=== PATIENT | female | born 1940 | race Caucasian/White ===

== ENCOUNTER 2017-12-05 05:53 | Inpatient (IN) | payer OTHER ==
--- NOTE | 2017-11-29 09:47 | RAD REPORT ---
EXAM DESCRIPTION: RADOP - Outpt Chest Pa/Lat (2 Views) - 11/29/2017 9:10 am CLINICAL HISTORY: Preop COMPARISON: 2014 FINDINGS: The lungs appear clear of acute infiltrate. The heart is borderline enlarged. IMPRESSION: No acute abnormality is displayed
[2017-11-29 10:22] LABS: Absolute Lymphocytes (CBC) 1.9 K/uL (0.7-4.9); Absolute Monocytes 0.3 K/uL (0.1-1.3); Basophils % 0.9 % (0-1.3); Eosinophils % 4.6 % (0-4.4); Lymphocytes % 34.7 % (15.3-44.8); MCV 87.4 fL (80-100); MPV 7.2 fL (7.6-11.3); RBC Red Blood Cell Count 4.69 M/uL (3.86-4.86)
[2017-11-29 10:23] LABS: Urine Appearance CLEAR; Urine Bilirubin NEGATIVE (NEG); Urine Blood NEGATIVE (NEG); Urine Color YELLOW; Urine Glucose NEGATIVE (NEG); Urine Protein NEGATIVE (NEG); Urine Urobilinogen 0.2 mg/dL (0.2-1.0); Urine pH 6.5 (5.0-7.0)
[2017-11-29 10:24] LABS: Urine Microscopic Reflex NO UMIC
[2017-11-29 10:30] LABS: Protime INR 1.03
[2017-11-29 10:45] LABS: Albumin 4.6 g/dL (3.2-5.5); Bilirubin Direct 0.1 mg/dL (0-0.2); Bilirubin Total 1.1 mg/dL (0.3-1.2); Protein, Total 7.7 g/dL (6.0-8.3)
[2017-11-29 10:48] LABS: Albumin 4.5 g/dL (3.2-5.5); Potassium 3.9 mEq/L (3.6-5.0); Protein, Total 7.6 g/dL (6.0-8.3)
[2017-11-29 11:04] LABS: A1c Component 0.61 mg/dL; Hemoglobin A1c 6.2 % (4-6.0)
--- OUTSIDE RECORDS SUMMARY | 2017-12-05 05:55 | XMS REPORT | Clinical Summary ---
:1940 Author Organization [facility] Address [address] [place] [address] Care Team Providers Name Role Phone Bryn Whitaker MD Primary Care Provider Allergies Active Allergy Reactions Severity Noted Date Comments Hydrocodone 12/13/2016 Current Medications Prescription Sig. Disp. Refills Start Date End Date Status amLODIPine (NORVASC) TK 1 T PO 0 11/29/2016 Active 5 mg tablet QD levothyroxine TK 1 T PO 0 09/06/2016 Active (SYNTHROID, LEVOXYL) QD 125 mcg tablet atorvastatin 11/28/2016 Active (LIPITOR) 20 MG tablet irbesartan-hydrochlor TK 1 T PO 1 10/31/2016 Active othiazide (AVALIDE) QD 300-12.5 mg per tablet metFORMIN XR TK 2 TS PO 0 09/06/2016 Active (GLUCOPHAGE-XR) 500 QD mg 24 hr tablet LUMIGAN 0.01 % 12/11/2016 Active ophthalmic drops clopidogrel (PLAVIX) TK 1 T PO 90 tablet 3 11/06/2017 Active 75 mg tablet QAM clopidogrel (PLAVIX) TK 1 T PO 3 11/07/2016 11/06/2017 Discontinued 75 mg tablet QAM Active Problems Problem Noted Date Carotid disease, bilateral 12/13/2016 Encounters Date Type Specialty Care Team Description 11/27/2017 Telephone Cardiology Buster Hunter MA Results (nuclear stress test) 11/06/2017 Refill Cardiology Liseth Aguiar Med Refill (Plavix) JOSE CARLOS 10/25/2017 Telephone Cardiology Buster Hunter MA cardiac clearance 10/25/2017 Orders Only Cardiology Buster Hunter MA Carotid disease, bilateral (Primary Dx) 12/13/2016 Office Visit Cardiology Porfirio Jain MD Carotid disease, bilateral (Primary Dx) after 12/04/2016 Family History Medical History Relation Name Comments Stroke Father Relation Name Status Comments Father Social History Tobacco Use Types Packs/Day Years Used Date Never Smoker Alcohol Use Drinks/Week oz/Week Comments No Sex Assigned at Date Recorded Not on file Last Filed Vital Signs Vital Sign Reading Time Taken Blood Pressure 160/72 12/13/2016 11:13 AM CDT Pulse 77 12/13/2016 11:13 AM CDT Temperature - - Respiratory Rate - - Oxygen Saturation - - Inhaled Oxygen Concentration - - Weight 81.7 kg (180 lb 3.2 oz) 12/13/2016 11:13 AM CDT Height 162.6 cm (5' 4") 12/13/2016 11:13 AM CDT Body Mass Index 30.93 12/13/2016 11:13 AM CDT Plan of Treatment Health Maintenance Due Date Last Done Comments ZOSTER VACCINE 2001 PNEUMOCOCCAL POLYSACCHARIDE VACCINE AGE 65 AND OVER 2006 PNEUMOCOCCAL-13 2006 INFLUENZA VACCINE 04/11/2017 Procedures Procedure Name Priority Date/Time Associated Comments Diagnosis ECHOCARDIOGRAM 2D Routine 11/24/2017 11:33 Carotid disease, Results for this COMPLETE W MMODE AM CDT bilateral procedure are in SPECTRAL COLOR DOPPLER the results ([id number]) section. after 12/04/2016 Results Echocardiogram complete w contrast and 3D if needed (11/24/2017 11:33 AM) Specimen Performing Laboratory [facility] [id number] [place] [address] Narrative [facility] Echocardiography Report Pat.Name:REMEDIOS ROTHMAN Pat.ID:[id number] .Date: 11/24/2017 Refer.MD:PORFIRIO JAIN MD Exam Time: 10:56:00 AM Study Type:Routine Echo Height:64inWeight:180lb BSA: 1.87 m2 DOBAge:1940,77Y Sex: FEMALEBP:150/72 Sonogrphr: Ros Adorno. Stat.:Outpatient Room:[address] Status:Final Echo Event ID:[id number] Order ID:[id number] Reason for Study:Carotid Disease History / Clinical:Hyperlipidemia, Hypertension Procedures:2D Echo, Colorflow Doppler Race:C FINDINGS: LV: LV size is normal. LV EF is normal. Overall wall motion is normal.Estimated EF is 65-69% RV: RV size is normal. RV systolic function is normal. LA: LA size is normal. RA: RA size is normal. AO: Aortic root diameter is normal. JOSÉ: No pericardial effusion. AV: No structural AV abnormalities noted. MV: No structural MV abnormalities noted. PV: No structural PV abnormalities noted. A trace of pulmonic regurgitation. TV: No structural TV abnormalities noted. A trace of tricuspid regurgitation Gregory: LV relaxation is impaired. LV filling pressure is elevated. Other:Estimated PA systolic pressure is 30-35 mmHg, assuming a meanRAP of 5 mmHg. MEASUREMENTS: 2D Parasternal Long [place] LVOT 1.7 cmLA Ds3.6 cm LVIDd4.4 cmIndex 2.4 cm/m Ao Rtd 3.5 cm Index1.9 cm/m LVIDs2.8 cmLV Jkpt413.2 g(87-129) LV%fs 36.4 % LVM Index 84.6 g/m2 IVSd 1 cmRWT0.5 LVPWd1.1 cm LA Biplane LA 4Ch Area 19.1 cm2 LA Vol 51.6 ml Index27.6 ml/m LA 2Ch Area 18.3 cm2 Signed 11/26/2017 12:54 AM Consuelo Armas M.D. Procedure Note Interface, Radiology Results In - 11/26/2017 12:54 AM CDT [facility] Echocardiography Report Pat.Name: REMEDIOS ROTHMAN.ID: [id number] .Date: 11/24/2017 Refer.MD: PORFIRIO JAIN MD Exam Time: 10:56:00 AM Study Type:Routine Echo Height: 64in Weight: 180lb BSA: 1.87 m2 Age: 10 1940,77Y Sex: FEMALE BP: 150/72 Sonogrphr: Amadou Lux RDCS Pat. Stat.:Outpatient Room: [place] [address] Study Status:Final Echo Event ID:[id number] Order ID: [id number] Reason for Study:Carotid Disease History / Clinical:Hyperlipidemia, Hypertension Procedures:2D Echo, Colorflow Doppler Race: C FINDINGS: LV: LV size is normal. LV EF is normal. Overall wall motion is normal. Estimated EF is 65-69% RV: RV size is normal. RV systolic function is normal. LA: LA size is normal. RA: RA size is normal. AO: Aortic root diameter is normal. JOSÉ: No pericardial effusion. AV: No structural AV abnormalities noted. MV: No structural MV abnormalities noted. PV: No structural PV abnormalities noted. A trace of pulmonic regurgitation. TV: No structural TV abnormalities noted. A trace of tricuspid regurgitation Gregory: LV relaxation is impaired. LV filling pressure is elevated. Other: Estimated PA systolic pressure is 30-35 mmHg, assuming a mean RAP of 5 mmHg. MEASUREMENTS: 2D Parasternal Long [place] LVOT 1.7 cm LA Ds 3.6 cm LVIDd 4.4 cm Index 2.4 cm/m Ao Rtd 3.5 cm Index 1.9 cm/m LVIDs 2.8 cm LV Mass 158.2 g (87-129) LV%fs 36.4 % LVM Index 84.6 g/m2 IVSd 1 cm RWT 0.5 LVPWd 1.1 cm LA Biplane LA 4Ch Area 19.1 cm2 LA Vol 51.6 ml Index 27.6 ml/m LA 2Ch Area 18.3 cm2 Signed 11/26/2017 12:54 AM Consuelo Armas M.D. after 12/04/2016 Insurance Payer Benefit Plan / Group Subscriber ID Type Phone Address A[employer]NA MEDICARE AETNA MEDICARE HMO/PPO [facility] xxxxxxxx HMO [phone] [place] [phone]
[2017-12-05] MEDS ORDERED: NA CHLORIDE 0.9% 1,000 ML ONE ×2 (06:17→09:19)
[2017-12-05] MEDS ORDERED: CEFAZOLIN/SWI 1gm 1 GM/10 ML SYR ONE (06:17)
[2017-12-05] MEDS ORDERED: LIDOCAINE 2% MPF 5 ML VIAL ONE ×2 (07:08→09:00)
[2017-12-05] MEDS ORDERED: ROCURONIUM 50 MG/5 ML VIAL IV ONE ×2 (07:08→09:00)
[2017-12-05] MEDS ORDERED: FENTANYL CITR 100 MCG/2 ML ONE ×2 (07:08→09:00)
[2017-12-05] MEDS ORDERED: MIDAZOLAM HCL 2 MG/2 ML INJ ONE ×2 (07:08→09:00)
[2017-12-05] MEDS ORDERED: PROPOFOL 200 MG/20 ML VIAL IV ONE ×2 (07:08→09:00)
[2017-12-05] MEDS ORDERED: TRANEXAMIC ACID 1,000 MG in NA CHLORIDE 0.9% 50 ML IV SCH (07:15)
[2017-12-05] MEDS ORDERED: DEXAMETHASONE 4 MG/ML VIAL ONE (07:15)
[2017-12-05] MEDS ORDERED: ROPLVACAINE HCL 40 ML ONE (07:15)
[2017-12-05] MEDS ORDERED: NA CHLORIDE 0.9% 250 ML ONE (07:21)
[2017-12-05] MEDS ORDERED: EPHEDRINE SULF 50 MG/5 ML SYR ONE (09:00)
[2017-12-05] MEDS: BUPIVACA 0.25%/EPI 0.0005%/PF 30 ML VIAL ONE ×3 (09:06→11:20)
[2017-12-05] MEDS ORDERED: CEFAZOLIN SODIUM 1 GM/VIAL ONE (09:58)
[2017-12-05] MEDS ORDERED: ONDANSETRON 4 MG/2 ML VIAL ONE (09:59)
[2017-12-05] MEDS ORDERED: NS 0.9% VIAL 10 ML ONE (09:59)
[2017-12-05] MEDS ORDERED: KETOROLAC 30 MG/ML INJ ONE (11:15)
[2017-12-05 12:06] LABS: Hematocrit 35.5 % (36.0-45.0)
--- NOTE | 2017-12-05 12:14 | P.BOP ---
Preoperative diagnosis: PRIMARY OSTEOARTHRITIS RIGHT KNEE Postoperative diagnosis: SAME Primary procedure: RIGHT KNEE TOTAL KNEE ARTHROPLASTY, IMAGELESS Jute Bag Sewer: RENATO LLANOS Estimated blood loss: 75 mL Findings: EBURNATED BONE MED. COMPT. Anesthesia: General Complications: None Implants: SIGMA PS4NR;TIB MBT TRAY RP3;INSERT [id number] Fluids & blood products: SMARTSET GMV GENT CEMENT 2 BATCHES; 0.25%MARCAINE 30 mL w/EPI Transferred to: Recovery Room Condition: Good
--- NOTE | 2017-12-05 12:45 | RAD REPORT ---
EXAM DESCRIPTION: RAD - Knee Right 2 View - 12/05/2017 12:00 pm CLINICAL HISTORY: Right knee surgery FINDINGS: Postsurgical changes of a right knee arthroplasty are seen. The prosthesis is in good posi tion. No fracture or dislocation is noted. There is no loosening of hardware
[2017-12-05] MEDS: Ringers Lactate 1,000 ML IV SCH (12:54)
[2017-12-05] MEDS ORDERED: D50W 25 GM/50 ML SYRINGE IV PRN (17:03)
[2017-12-05] MEDS ORDERED: GLUCAGON 1 MG/VIAL IM PRN (17:03)
[2017-12-05] MEDS: AMLODIPINE 10 MG TAB PO SCH (17:22)
[2017-12-05] MEDS: CEFAZOLIN/SWI 1gm 1 GM/10 ML SYR IV SCH (17:23)
[2017-12-05] MEDS ORDERED: BIMATOPROST EACH EYE SCH (17:30)
[2017-12-05 18:24] VITALS: BMI 32.1
[2017-12-05] MEDS: ATORVASTATIN 20 MG TAB PO SCH (20:11)
[2017-12-05] MEDS ORDERED: EPA PO SCH (21:00)
[2017-12-05] MEDS ORDERED: FISH OIL PO SCH (21:00)
[2017-12-05] MEDS ORDERED: DHA PO SCH (21:00)
[2017-12-05] MEDS ORDERED: OMEGA PO SCH (21:00)
[2017-12-05] MEDS ORDERED: HOME MED 1 EA UNK (Folic Acid [Folic Acid] 0.4 MG) PO SCH (21:00)
[2017-12-05] MEDS: INSULIN -REGULAR HUMAN 50 UNIT/0.5 ML ML SQ SCH (21:33)
--- NOTE | 2017-12-05 21:45 | CON ---
Date of Consultation: 12/05/2017 Reason For Consultation: Medical management for high blood pressure and diabetes. History Of Present Illness: The patient is a 77-year-old female with past medical history of hypertension; hyperlipidemia; carotid artery disease, status post stent; diabetes; who was admitted to the hospital for right total knee replacement. The patient has been undergoing treatment for her epdw-bu-[id number] arthritis for the past year and was scheduled for total right knee replacement. The patient was operated on today by Dr. Aleman and tolerated the procedure well. The patient does not take insulin for her diabetes. She is very well controlled with a hemoglobin A1c of 6.2%. Postoperatively, her blood pressure has been normotensive to hypotensive side, and the patient has been asymptomatic. The patient's blood sugar has been stable with last check 189. When the patient was seen, she was awake, alert, oriented x3, not in any acute distress. Past Medical History: Hypertension, hyperlipidemia, diabetes mellitus type 2, carotid artery disease. Past Surgical History: Right carotid stent placement, left total knee replacement, right foot bunion surgery, left hand surgery, and recent right total knee replacement. Allergies: GABAPENTIN AND HYDROCODONE. Medications: Reviewed. Social History: Denies any alcohol use, tobacco use, or illicit drug use. The patient is , has good social support. Family History: Sister had breast cancer and end-stage renal disease. Both aunts on maternal and paternal side have diabetes. Mother has hypertension. Review of Systems: An 11-point system reviewed, negative except as above. Physical Examination: Vital Signs: Temperature 97.2, heart rate 73, blood pressure 116/52, respirations 16, O2 95% on room air. General: Awake, alert, oriented x3. No acute distress. Elderly female, obese , BMI 32.1. HEENT: Normocephalic, atraumatic. PERRLA. EOMI. Moist mucous membranes. Oropharynx is clear. Conjunctiva anicteric. Neck: Supple. No JVD. Trachea midline. CV: S1, S2. No murmurs. Regular rate and rhythm. Peripheral pulses present bilaterally. Respiratory: Clear to auscultation bilaterally. No wheezing. No stridor. No use of accessory muscles. Gastrointestinal: Abdomen is soft, nontender, nondistended. Positive bowel sounds. Extremities: No clubbing, cyanosis, or edema. No calf tenderness. Musculoskeletal: Right knee is bandaged. Limited range of motion due to bandage. Neurologic: Nonfocal. Cranial nerves 2 through 12 intact grossly. No focal neurological deficit. Speech is normal. Skin: No rashes. Normal skin turgor. Laboratory Data: Hemoglobin 11.9, hematocrit 35.5. Blood glucose 189. Hemoglobin A1c 6.2% from 11/29/2017. Diagnostic Data: Knee x-ray shows postsurgical changes in right knee arthroplasty are seen. The prosthesis is in good position. No fracture or dislocation is noted. There is no loosening of hardware. Assessment And Plan: A 77-year-old female with; 1. Right total knee replacement, postoperative day number zero [address] Aleman. Pain control. 2. Diabetes mellitus type 2 with hyperglycemia, non-insulin dependent. We will start the patient on sliding scale insulin. Hemoglobin A1c is 6.2%. The patient's diabetes is well controlled. We will continue to monitor blood glucose levels. 3. Essential hypertension, stable. Resume home medications as appropriate. 4. Hyperlipidemia. Continue statin. 5. Obesity. Body mass index of 32.1. 6. Hypothyroidism 7. Glaucoma Thank you for the consultation. We will follow along with you. ALEXANDER Voice ID: [id number] Report ID: [id number] JOSE C
[2017-12-06] MEDS: CEFAZOLIN/SWI 1gm 1 GM/10 ML SYR IV SCH (00:15)
--- NOTE | 2017-12-06 00:15 | OP ---
Date of Procedure: 12/05/2017 Surgeon: Jose Aleman MD Financial Services Representative: MEL Chacon. Preoperative Diagnosis: Primary osteoarthritis, right knee. Postoperative Diagnosis: Primary osteoarthritis, right knee. Primary Procedure: Right knee total knee arthroplasty, imageless. Indications: This 77-year-old female had a left total knee done in 2008. She has been using that as her strong knee and putting up with increasingly limiting and painful symptoms for her right knee. She has no longer a good response to viscosupplementation or hydrocortisone injections. The patient is finding daily activities limited and painful. She has elected to proceed with total knee arthropl asty for her right knee after discussion of risks and benefits with all questions answered. Technique: The patient was taken to the operating room and given a general anesthetic. She had been given a femoral nerve and sciatic nerve block in the PACU. The right lower extremity was prepped an d draped with a tourniquet at the proximal thigh and a bolster under the right hip. Rest was positio bbi on the foot of the bed to place the knee in a 90-degree flexed position. After prepping and drap ing, a pen was used to daniel the incision. Then, an Ioban sticky drape was applied. The incision was made across the patella in the midline going from 6 cm above the superior pole of the patella to jus t medial and distal to the tibial tubercle. This was carried sharply through the skin and subcutaneo us tissue and then blunt and sharp dissection was used to expose the medial parapatellar line. The m edial parapatellar incision through the joint capsule was carried out sharply. The patella was quinn ed and measured at 22 mm. The 3 PEG oval dome 38 mm patellar prosthetic component was chosen. The c utting jig was set for removal of 9 mm. The oscillating saw was used to make the cut removing the ar ticular surface of the patella. PEG holes were drilled and the prosthetic trial patella was placed i n position and measured at 22 mm of thickness again. The patellar dome trial was removed and a metal rosangela was putting in its place and then sharp debridement was carried out for the knee, removing the majority of the anterior fat pad and ligamentum mucosum. Also the portions of the medial and lateral menisci that could be reached were removed sharply along with the floor of the suprapatellar pouch a gainst the distal anterior supracondylar femur. The sharp debridement was completed and a rongeur wa s used to remove bone spurs on the proximal tibial rim and the distal femoral articular margin. The 3-mm pins were placed in parallel fashion inside the incision in the distal femur, angled medially. Once the pins were in place, the femoral array was attached. Two pins were placed through punctures in the mid tibial area on the medial side of the lower leg. Once the arrays were in place, the limb was moved in circumduction while the computer picked up the center of rotation of the femoral head fo r measuring the mechanical weightbearing line. The registration was then carried out for the femur a nd the tibia in sequence as indicated by the computer navigation program. A size 3 tibial tray was s elected along with a 4 in femoral component. The cutting jig for the tibia was navigated into positi on. The cut was made and verified. Then, the tensionometers were put in. The medial collateral lig ament was tight and release was required in the proximal portion of the MCL distally adjacent to the medial tibia. This was done with a periosteal elevator and once the partial release was accomplished , then the tensionomentor was replaced and the numbers were acceptable. The cutting jig for the dist al femur was then navigated into position. The cut was made and verified. The 4-in-1 cutting jig wa s navigated into position. Again, the cut was made and verified. The anterior cut was made first fo llowed by the posterior cut and chamfer cuts. The box cutting guide was placed in position, centered in the distal femur. The reciprocating saw was used to make those cuts and removed the notch portio n of the femur excised. The trial was then placed in position on the distal femur and fit extremely well. Preparation was then carried out for the proximal tibia. The size 3 MBT tray RP was inserted. The trial prosthetic components then all put in position showed that the prosthetic components were fitting quite nicely with a 10-mm insert. All trial components were then removed. Simpulse lavage was utilized and then the tranexamic acid 1 g was injected into the capsule around the knee. The 2 b atches of SmartSet GMV gentamicin cement were mixed in a cement gun for injection technique and then the cement was injected first into the cancellous surface of the proximal tibia. The tibial tray was seated and held in position while excess cement was curetted away. This was the MBT RP tray. At th at point, cement was injected into the cancellous surface of the distal femur and the Sigma posterior stabilized size 4 in rotating platform was held in position with excess cement curetted away. The c ement was then injected into the cut cancellous surface of the patella and the size 38 mm patella 3 P EG, oval dome prosthesis was held in position while excess cement was curetted away. After the cemen t had set, the tourniquet was released and Aquamantys and regular Bovie were utilized to obtain hemos tasis. The knee was irrigated again profusely and then closed in layers using #1 Vicryl for fascial closure of the capsule. A 2-0 Vicryl was used for subcutaneous closure with interrupted sutures and the skin incision was closed with lolita. The incisions were injected with 0.25% Marcaine with epin ephrine, 30 mL total injected into the area of the incision and capsule. A sterile Aquacel bandage w as applied to the incision and a smaller Aquacel bandage was applied to the punctures distal to the m ain incision. ABD and soft roll were applied and secured with an Larry wrap. The patient was then jori en to the recovery room having tolerated this procedure well. Estimated blood loss was 75 mL. BILLY/RADHA Voice ID: [id number] Report ID: [id number]
[2017-12-06 05:51] LABS: Hematocrit 35.4 % (36.0-45.0)
[2017-12-06] MEDS: HOME MED 1 EA UNK (Irbesartan/Hydrochlorothiazide [Avalide 300-12.5 Mg Tablet] 1 EACH) PO SCH (06:00)
[2017-12-06] MEDS: INSULIN -REGULAR HUMAN 50 UNIT/0.5 ML ML SQ SCH ×4 (07:30→20:53)
[2017-12-06] MEDS: Ringers Lactate 1,000 ML IV SCH (08:11)
[2017-12-06] MEDS: CELECOXIB 100 MG CAPSULE PO SCH (08:11)
[2017-12-06] MEDS: ASCORBIC ACID 500 MG TABLET PO SCH (08:11)
[2017-12-06] MEDS: FE SULF/FA/VIT B COMP & C TAB PO SCH (08:11)
[2017-12-06] MEDS: CLOPIDOGREL 75 MG TABLET PO SCH (08:11)
[2017-12-06] MEDS: ASPIRIN EC 81 MG TAB PO SCH (08:11)
[2017-12-06] MEDS ORDERED: HOME MED 1 EA UNK (Cyanocobalamin (Vitamin B-12) [Vitamin B12] 5,000 MCG) PO SCH (09:00)
[2017-12-06] MEDS ORDERED: HOME MED 1 EA UNK (Cholecalciferol (Vitamin D3) [Vitamin D3] 2,000 UNIT) PO SCH (09:00)
[2017-12-06] MEDS ORDERED: VITAMIN E MIXED PO SCH (09:00)
[2017-12-06] MEDS ORDERED: UBIDECARENONE PO SCH (09:00)
[2017-12-06] MEDS ORDERED: HOME MED 1 EA UNK (Levothyroxine Sodium [Levothyroxine Sodium] 137 MCG) PO SCH (09:00)
[2017-12-06] MEDS ORDERED: HOME MED 1 EA UNK (Magnesium Oxide [Magnesium] 500 MG) PO SCH (09:00)
[2017-12-06] MEDS ORDERED: [UNRECOGNIZED DRUG - OTHER] PO SCH (09:00)
[2017-12-06] MEDS ORDERED: MELATONIN 5 MG TABLET PO PRN (10:48)
[2017-12-06] MEDS: TRAMADOL 37.5mg/APAP 325mg PER TAB PO PRN ×2 (11:05→17:07)
[2017-12-06] MEDS ORDERED: REPAGLINIDE 2 MG PO SCH (12:00)
[2017-12-06] MEDS: AMLODIPINE 10 MG TAB PO SCH (17:03)
--- NOTE | 2017-12-06 18:46 | PN ---
Date of Progress Note: 12/06/2017 Subjective: The patient is seen and examined, chart reviewed, and case discussed with RN. The patie nt states her pain is well controlled. Review of Systems: Negative except as above. Medications: Reviewed. Physical Examination: Vital Signs: Temperature 98.6, heart rate 75, blood pressure 137/62, respirations 18, O2 94% on room air. General: Awake, alert, oriented x3. No acute distress. Elderly female, obese, BMI 32. CV: S1, S2. No murmurs. Regular rate and rhythm. Peripheral pulses present. Respiratory: Clear to auscultation bilaterally. No wheezing. Abdomen: Soft, nontender, and nondistended. Positive bowel sounds. Extremities: No clubbing, cyanosis, edema. Musculoskeletal: Right knee bandaged. Neurologic: Nonfocal. Laboratory Data: Glucose 148, H and H 12.3 and 35.4. Assessment And Plan: A 77-year-old female with; 1.Right total knee replacement, postop day #1. Plan per Dr. Aleman. 2.Diabetes mellitus type 2 with hyperglycemia, non-insulin dependent. We will continue sliding scal e insulin. Hemoglobin A1c is 6.2%. Glucose levels are well controlled. 3.Essential hypertension, stable. Continue home medications. 4.Mixed hyperlipidemia. Continue statin. 5.Obesity, BMI 32. 6.Hypothyroidism. We will continue Synthroid. 7.Glaucoma. Continue eye drops. /RADHA Voice ID: [id number] Report ID: [id number]
[2017-12-06] MEDS: ATORVASTATIN 20 MG TAB PO SCH (20:33)
[2017-12-06] MEDS: MORPHINE 4 MG/ML SYR IV PRN (20:39)
[2017-12-06] MEDS: ONDANSETRON 4 MG/2 ML VIAL IV PRN (20:40)
[2017-12-07] MEDS: TRAMADOL 37.5mg/APAP 325mg PER TAB PO PRN (02:23)
[2017-12-07] MEDS: Ringers Lactate 1,000 ML IV SCH (04:00)
[2017-12-07 05:40] LABS: Hematocrit 32.8 % (36.0-45.0)
[2017-12-07] MEDS: HOME MED 1 EA UNK (Irbesartan/Hydrochlorothiazide [Avalide 300-12.5 Mg Tablet] 1 EACH) PO SCH (06:00)
[2017-12-07] MEDS: ONDANSETRON 4 MG/2 ML VIAL IV PRN (07:24)
[2017-12-07] MEDS: MORPHINE 4 MG/ML SYR IV PRN ×2 (07:24→11:59)
[2017-12-07] MEDS: INSULIN -REGULAR HUMAN 50 UNIT/0.5 ML ML SQ SCH ×4 (07:30→20:38)
[2017-12-07] MEDS: FE SULF/FA/VIT B COMP & C TAB PO SCH (09:27)
[2017-12-07] MEDS: CLOPIDOGREL 75 MG TABLET PO SCH (09:27)
[2017-12-07] MEDS: CELECOXIB 100 MG CAPSULE PO SCH (09:27)
[2017-12-07] MEDS: ASCORBIC ACID 500 MG TABLET PO SCH (09:27)
[2017-12-07] MEDS: ASPIRIN EC 81 MG TAB PO SCH (09:27)
[2017-12-07] MEDS: IRBESARTAN 150 MG TAB PO SCH (11:46)
[2017-12-07] MEDS: LEVOTHYROXINE SOD 0.025 MG TAB PO SCH (11:47)
[2017-12-07] MEDS: hydroCHLOROthiazide 12.5 MG CAP PO SCH (11:47)
[2017-12-07] MEDS: LEVOTHYROXINE SOD 0.112 MG TAB PO SCH (11:59)
--- NOTE | 2017-12-07 13:47 | P.PN ---
Date of Service: 12/06/17 (POD#1) Subjective: the patient was being mobilized to stand and ambulate with physical therapy in attendance at the time of this visit. Objective: Vital signs are stable, hemoglobin is 12.3; glucose levels vary from 129 to 206; patients pain scale has read zero, zero, three, five, three, 3 /10 intensity; x-ray shows excellent alignment of prosthetic components. The patient has already ambulated 90 feet with rolling walker this morning with physical therapy in attendance. During the afternoon session the patient made 250 feet x 1 with rolling walker and was accomplishing straight leg raising on her own. Assessment: this patient is making excellent progress with her first postoperative day efforts at mobilization. Plan: mobilization will be continued as tolerated. Hemoglobin will be monitored.
--- NOTE | 2017-12-07 18:07 | PN ---
Date of Progress Note: 12/07/2017 The patient is seen and examined. Chart reviewed and case discussed with RN. History: The patient is doing well. Pain is under control. No other acute events overnight. Review of Systems: Negative as above. Medications: Reviewed. Physical Examination: Vital Signs: Temperature 97.2, heart rate 72, blood pressure 149/67, respirations 18, O2 93% on room air. General: Awake, alert, oriented x3. No acute distress. Elderly female, obese, BMI 32.1. CV: S1, S2. No murmurs. Peripheral pulses present. Respiratory: Clear to auscultation bilaterally. No wheezing. Abdomen: Abdomen is soft, nontender, nondistended. Positive bowel sounds. Extremities: No clubbing, cyanosis, edema. Musculoskeletal: Right knee bandaged Neurologic: Nonfocal. Laboratory Data: H and H 11.2 and 32.8, glucose 129. Assessment And Plan: A 77-year-old female with: 1.Right total knee replacement, postop day #2. Plan per Dr. Aleman. 2.Diabetes mellitus type 2 with hyperglycemia, non-insulin dependent. Continue sliding scale insuli n. 3.Essential hypertension, stable. Continue medication. 4.Hyperlipidemia. Continue statin. 5.Obesity, BMI 32. 6.Hypothyroidism. Continue Synthroid. 7.Glaucoma. Continue eye drops. Plan: We will follow along with you. ALEXANDER Voice ID: [id number] Report ID: [id number]
[2017-12-07] MEDS: AMLODIPINE 10 MG TAB PO SCH (18:10)
--- NOTE | 2017-12-07 19:36 | P.PN ---
Date of Service: 12/07/17 (POD#2) Subjective: This patient had a great day yesterday ambulating 250'with a rolling walker in the afternoon. Today the patient has refused morning therapy chances because of nausea and pain. Her CPM was even reduced to 45 last night. Objective: VSS, hemoglobin is 11.2; patients pain scale was 0,0,6,4,6/10 intensity; the patient has taken Tramadol 37.5 mg/325 mg APAP 3 and 4 mg of morphine 3. The patient only ambulated 20 feet with rolling walker today. Assessment: This patient's block seemed to last well into the first postop day with her first postoperative medication given at approximately 11:00 yesterday. Today efforts at mobilization have been much less productive, nearly a lost day. Plan: The patient is allergic to hydrocodone, but has taken Tylenol No. 3 successfully in the past. Pain medications will be adjusted to aid with mobilization. The patient was replaced in the CPM machine for elevation and slow speed motion as the bent knee pinned to the mattress allows no movement of fluid and pressure points become focused and more intense. The bandage was taken down and inspected and there are no signs of excessive hemorrhage.
[2017-12-07] MEDS ORDERED: MORPHINE 2 MG/ML SYR IV PRN (19:41)
[2017-12-07] MEDS: ATORVASTATIN 20 MG TAB PO SCH (20:37)
[2017-12-07 21:38] VITALS: O2SAT 98
[2017-12-07] MEDS: CODEINE 30MG/APAP 300MG TAB PO PRN (23:15)
[2017-12-08] MEDS: Ringers Lactate 1,000 ML IV SCH
[2017-12-08 05:19] LABS: Hematocrit 32.4 % (36.0-45.0)
[2017-12-08] MEDS: LEVOTHYROXINE SOD 0.025 MG TAB PO SCH (05:39)
[2017-12-08] MEDS: LEVOTHYROXINE SOD 0.112 MG TAB PO SCH (05:39)
[2017-12-08] MEDS ORDERED: LEVOTHYROXINE SOD 0.125 MG TAB PO SCH (06:00)
[2017-12-08] MEDS: INSULIN -REGULAR HUMAN 50 UNIT/0.5 ML ML SQ SCH ×4 (07:30→20:36)
[2017-12-08] MEDS ORDERED: APPL VAG SCH (09:00)
[2017-12-08] MEDS ORDERED: ESTROGENS CONJ VAG SCH (09:00)
[2017-12-08] MEDS: CODEINE 30MG/APAP 300MG TAB PO PRN (10:30)
[2017-12-08] MEDS: CELECOXIB 100 MG CAPSULE PO SCH (10:30)
[2017-12-08] MEDS: CLOPIDOGREL 75 MG TABLET PO SCH (10:30)
[2017-12-08] MEDS: FE SULF/FA/VIT B COMP & C TAB PO SCH (10:30)
[2017-12-08] MEDS: IRBESARTAN 150 MG TAB PO SCH (10:31)
[2017-12-08] MEDS: DOCUSATE NA 100 MG CAP PO PRN (10:32)
[2017-12-08] MEDS: hydroCHLOROthiazide 12.5 MG CAP PO SCH (10:32)
[2017-12-08] MEDS: ASPIRIN EC 81 MG TAB PO SCH (10:32)
[2017-12-08] MEDS: ASCORBIC ACID 500 MG TABLET PO SCH (10:33)
[2017-12-08] MEDS: AMLODIPINE 10 MG TAB PO SCH (17:37)
--- NOTE | 2017-12-08 19:27 | PN ---
Date of Progress Note: 12/08/2017 Subjective: The patient seen and examined. Chart reviewed. Case discussed with RN. The patient wo rking well with PT. Did complain of some slight dizziness while getting up. Orthostatics were check ed, which were negative. Review of Systems: Negative except as above. Medications: Reviewed. Physical Examination: Vital Signs: Temperature 97.5, heart rate 80, blood pressure 126/61, respirations 16, O2 96% on room air. General: Awake, alert, and oriented x3. No acute distress. Elderly female, obese, BMI 32. CV: S1, S2. No murmurs. Regular rate and rhythm. Peripheral pulses present. Respiratory: Clear to auscultation bilaterally. No wheezing. No stridor. Abdomen: Soft, nontender, nondistended. Positive bowel sounds. Extremities: No clubbing, cyanosis, or edema. Musculoskeletal: Right knee bandaged. Neurologic: Nonfocal. Laboratory Data: Glucose 193. H and H 11.4 and 32.4. Assessment And Plan: A 77-year-old female with; 1.Right total knee replacement, postop day #3. Plan per Dr. Aleman. 2.Diabetes mellitus type 2 with hyperglycemia, noninsulin dependent. Continue sliding scale insulin . 3.Essential hypertension, stable. 4.Hyperlipidemia, statin. 5.Obesity, BMI 32. 6.Hypothyroidism. Continue Synthroid. 7.Glaucoma. Continue eye drops. Plan: Repeat orthostatic vital signs if continues to be dizzy. Current orthostatics are negative. Not on any heavy sedating medications other than for pain. We will continue to monitor. /RADHA Voice ID: [id number] Report ID: [id number]
[2017-12-08] MEDS: ATORVASTATIN 20 MG TAB PO SCH (20:35)
[2017-12-09] MEDS: CODEINE 30MG/APAP 300MG TAB PO PRN ×3 (02:18→17:25)
[2017-12-09 04:55] LABS: Hematocrit 32.1 % (36.0-45.0)
[2017-12-09] MEDS: LEVOTHYROXINE SOD 0.112 MG TAB PO SCH (05:36)
[2017-12-09] MEDS: LEVOTHYROXINE SOD 0.025 MG TAB PO SCH (05:36)
[2017-12-09] MEDS: INSULIN -REGULAR HUMAN 50 UNIT/0.5 ML ML SQ SCH ×3 (07:30→16:30)
[2017-12-09] MEDS: DOCUSATE NA 100 MG CAP PO PRN (08:52)
[2017-12-09] MEDS: ASCORBIC ACID 500 MG TABLET PO SCH (08:52)
[2017-12-09] MEDS: ASPIRIN EC 81 MG TAB PO SCH (08:52)
[2017-12-09] MEDS: hydroCHLOROthiazide 12.5 MG CAP PO SCH (08:52)
[2017-12-09] MEDS: CELECOXIB 100 MG CAPSULE PO SCH (08:52)
[2017-12-09] MEDS: IRBESARTAN 150 MG TAB PO SCH (08:52)
[2017-12-09] MEDS: FE SULF/FA/VIT B COMP & C TAB PO SCH (08:52)
[2017-12-09] MEDS: CLOPIDOGREL 75 MG TABLET PO SCH (08:56)
--- NOTE | 2017-12-09 13:16 | PN ---
Date of Progress Note: 12/09/2017 Subjective: The patient is seen and examined. Chart reviewed and case discussed with RN. The patie nt is doing well. No other complaints. Doing well with physical therapy and walked hallway couple o f times. Review of Systems: Negative except as above. Medications: Reviewed. Physical Examination: Vital Signs: Temperature 97, heart rate 89, blood pressure 133/63, respirations 16, O2 97% on room a ir. General: Awake, alert, oriented x3. No acute distress. Elderly female, obese, BMI 32. CV: S1, S2. Regular rate and rhythm. Peripheral pulses present. Respiratory: Clear to auscultation bilaterally. No wheezing. Abdomen: Soft, nontender, nondistended. Positive bowel sounds. Extremities: No clubbing, cyanosis, edema. Musculoskeletal: Right knee bandaged, clean, dry, intact. Neurologic: Nonfocal. Laboratory Data: Glucose 166. H and H 11.2, 32.1. Assessment: A 77-year-old female with: 1.Right total knee replacement, postop day #[address] Aleman. 2.Diabetes mellitus type 2 with hyperglycemia, non-insulin dependent, stable on sliding scale insuli n. The patient takes oral hypoglycemics at home. We will continue. 3.Essential hypertension, stable. 4.Hyperlipidemia. 5.Statin. 6.Obesity, BMI 32. 7.Hypothyroidism, Synthroid. 8.Glaucoma. Continue treatment. Plan: DC planning per Dr. Aleman. /RADHA Voice ID: [id number] Report ID: [id number]
--- NOTE | 2017-12-09 17:08 | P.PN ---
Date of Service: 12/08/17 (POD#3) Subjective: This patient had LIGHTHEADEDNESS this a.m., but rallied in the afternoon for improved mobilization. CPM is up to 70.. Objective: VSS, hemoglobin is 11.4; patients pain scale decreasing; Tolerating Tylenol with Codeine. Assessment: Improving on POD #3. Plan: Continue mobilization. Pt. encouraged to do bed exercises between sessions with PT to catch up to expected progress.
[2017-12-09] MEDS: AMLODIPINE 10 MG TAB PO SCH (17:23)
[2017-12-09 17:26] VITALS: BP 135/60
--- NOTE | 2017-12-09 17:30 | P.PN ---
Date of Service: 12/09/17 (POD#4) Subjective: This patient WAS ANXIOUSLY AWAITING DISCHARGE TODAY. CPM is ALREADY DELIVERED TO HOME. Objective: VSS, hemoglobin is 11.2; patients pain scale 4,4,8,3,2/10; Tolerating Tylenol with Codeine FOR PAIN. Assessment: OK FOR DISCHARGE ON DAY #4 POST-OP. Plan: DISCHARGE TO [facility] FOR AD[facility], PT FOR TRANSFERS AND GAIT WBAT RLE w/RW, BANDAGE CHAGE AQUACEL Q 5D. CHANGE BANDAGE PRIOR TO DISCHARGE WITH ALCOHOL SWABS PRIOR TO NEW BANDAGES. TYLENOL#3 w/CODEINE 1 P.O.Q 4HRS PRN PAIN,#30 F/U MY OFFICE IN 7-10 D DC IV PRIOR TO DISCHARGE RESUME HOME MEDS PRESCRIBED.
[2017-12-09 18:38] VITALS: TEMP 97.4
--- NOTE | 2017-12-21 18:34 | DS ---
Date of Discharge: 12/09/2017 Remedios Rothman is a 77-year-old female who was admitted following right total knee arthroplasty don e with imageless technique on 12/05/2017. The surgery went quite well with 75 mL of bone loss and in sertion of a Sigma posterior stabilized size 4 RP femur, a tibia tibial MBT tray RP size 3, and a 3 P EG 38 mm patellar button, all inserted with 2 batches of SmartSet GMV gentamicin cement with cement g un injection technique. The rotating platform, size 4 x 10 mm size was the insert chosen for the bes t ligament balance. The patient had 30 mL of 0.25% Marcaine with epi injected into the incision area at closure. Medicine was consulted for management of medical care during hospitalization. Consulta tion was by Dr. Marysol Baker, who identified medical problems as diabetes mellitus types 2 with hyper glycemia, non insulin dependent. The patient was started on sliding scale insulin. Hemoglobin A1c w as 6.2% as diabetes was well controlled. Recommended was continued monitoring of the blood glucose l evels. Essential hypertension was identified and found to be stable. Resuming home medications were felt to be appropriate. Hyperlipidemia with recommendation to continue statin treatment. Obesity, body mass index of 32.1, hypothyroidism, and glaucoma were also identified as problems. On postopera tive day #1, 12/06/2017, the patient's vital signs were stable. Hemoglobin was 12.3. Glucose levels varied from 129-206. The patient's pain scale was indicating good control with medications and post operative x-ray showed excellent alignment of prosthetic components with the patient already ambulati ng 90 feet with a rolling walker during the morning PT session. During the afternoon session, the eleanor gavin made [address] around the nursing station and was accomplishing straight leg raising on her own. The patient made excellent progress with first postoperative day effort. The femoral n erve and sciatic nerve blocks were persisting and helping with pain control. Dr. Bakre recommended c ontinued sliding scale insulin as glucose levels were adequately controlled. Home medications were c ontinued for essential hypertension and hyperlipidemia, hypothyroidism was treated with continuing ho me medication of Synthroid supplement and eyedrops were continued for glaucoma. On postoperative day #2, the patient was unfortunately refusing morning therapy sessions because of nausea and pain as he r prolonged block had worn off. The CPM was even reduced to 45 degrees instead of the usual 60 degre es set at the beginning of CPM use. Hemoglobin was stable at 11.2. The pain scale was trending upwa rd. The patient has taken tramadol 37.5 mg/325 mg APAP x3 and 4 mg of morphine IV x3. The patient o nly managed to ambulate 20 feet with a rolling walker as opposed to the 250 feet she was able to do o n the prior day during her physical therapy session of the afternoon. This was felt to be a loss tod ay secondary to nausea and discomfort. The patient is allergic to hydrocodone and it is unavailable for treatment, but she had taken Tylenol No. 3 successfully in the past, so it was prescribed. The p atient was replaced in the CPM machine for elevation and the speed slowed to the minimum motion. The bent knee out of the CPM was pinned in external rotation to the mattress allowing no movement of flu id, and pressure points were felt to become focused and more intense with that tendency for no moveme nt at all. The bandage was taken down and inspected and there were no signs of excessive hemorrhage. On postoperative day 3, the patient had some lightheadedness, but rallied in the afternoon for impr rosario mobilization. CPM was running at 70 degrees and was well tolerated. Hemoglobin was stable at 1 1.4. Vital signs were stable as well. The pain scale was decreasing, and the patient was tolerating Tylenol with Codeine for p.o. pain medication management. Exercises were recommended between sessio ns with physical therapy so that the patient could catch up with expected progress. On postoperative day 4, the patient was anxiously awaiting her discharge. The CPM was reported already delivered to her home. Her vital signs were stable. Hemoglobin was 11.2, the patient's pain scale was 4, 4, 8, 3 , 2/10 intensity. The patient was tolerating Tylenol with Codeine for pain management. The patient was discharged to home health care for activities of daily living. Physical therapy by home health w as recommended for transfers and gait, weightbearing as tolerated, right lower extremity with a rolli ng walker. The patient was to have bandage changes for Aquacel q.5 days. The Aquacel bandage was ch anged prior to discharge with alcohol swabs before the new bandage was applied. Tylenol No. 3 with C odeine was prescribed 1 p.o. q.4 hours p.r.n. pain, number dispensed 30. Followup recommended for my office in 7-10 days for removal of lolita. Home medications were to be resumed. The patient was t o resume her home medications during hospitalization. She was restarted on aspirin 81 mg p.o. daily and Plavix 75 mg tablets p.o. daily along with all other medications as prescribed, to be resumed. S he was given 3 new medications to include Avapro 150 mg tablet 300 mg daily, Synthroid 0.112 mg p.o. daily a.c. and the Tylenol No. 3 tablets with Codeine 1 p.o. q.4 hours p.r.n. pain, number dispensed 30. BILLY/RADHA Voice ID: [id number] Report ID: [id number]
== END 2017-12-09 18:24 | disposition home health service (06) | DRG 470 ==
LOC: OR 05:53 → 2ND 12:00
PROVIDERS: ADMIT Orthopaedic Surgery; ATTEND Orthopaedic Surgery
PROC: 0SRC0J9 Replacement of Right Knee Joint with Synthetic Substitute, Cemented, Open Approach (ICD-10-PCS; principal; 2017-12-05 07:30)
DX: M17.11 Unilateral primary osteoarthritis, right knee (principal); E11.65 Type 2 diabetes mellitus with hyperglycemia; I10 Essential (primary) hypertension; E03.9 Hypothyroidism, unspecified; E78.2 Mixed hyperlipidemia; E78.5 Hyperlipidemia, unspecified; E66.9 Obesity, unspecified; H40.9 Unspecified glaucoma; Z68.32 Body mass index [BMI] 32.0-32.9, adult
CPT/HCPCS: 36415; 71046; 80053; 80076; 81003; 82962; 83036; 85014; 85018; 85025; 85610; 85730; 86850; 86900; 86901; 88304; 88305; 88311; 97163; J0690; J2250; J2405; J2795; J3010; J7030

== ENCOUNTER 2020-09-29 06:23 | Day surgery (SDC) | payer OTHER ==
[2020-09-24 10:36] LABS: Urine Appearance CLEAR; Urine Bilirubin NEGATIVE (NEG); Urine Blood NEGATIVE (NEG); Urine Color YELLOW; Urine Glucose NEGATIVE (NEG); Urine Protein NEGATIVE (NEG); Urine Specific Gravity <=1.005 (1.005-1.030); Urine Urobilinogen 0.2 mg/dL (0.2-1.0); Urine pH 6.5 (5.0-7.0)
[2020-09-24 10:42] LABS: Absolute Lymphocytes (CBC) 1.6 K/uL (0.7-4.9); Basophils % 0.8 % (0-1.3); Hematocrit 40.6 % (36.0-45.0); Lymphocytes % 30.6 % (15.3-44.8)
[2020-09-24 10:43] LABS: Potassium 4.1 mmol/L (3.5-5.1)
[2020-09-24 10:45] LABS: Urine Microscopic Reflex NO UMIC
[2020-09-24 10:46] LABS: Protime INR 0.99
--- OUTSIDE RECORDS SUMMARY | 2020-09-29 06:26 | XMS REPORT | Clinical Summary ---
:1940 Author Organization [facility] Address [address] [place] [address] Care Team Providers Name Role Phone Oscar Whitaker MD Primary Care Provider Allergies Active Allergy Reactions Severity Noted Date Comments Hydrocodone 12/13/2016 Other reaction( s): Nausea/Vomiting Medications Medication Sig Dispensed Refills Start Date End Date Status levothyroxine Take 150 mcg by 0 Active (SYNTHROID, mouth Every LEVOTHROID) 150 MCG morning on an tablet empty stomach. candesartan-hydrochlor Take 1 tablet by 0 Active othiazide (ATACAND mouth daily. HCT) 32-12.5 mg per tablet amLODIPine (NORVASC) Take 10 mg by 0 Active 10 MG tablet mouth daily. atorvastatin (LIPITOR) Take 20 mg by 0 Active 20 MG tablet mouth daily. clopidogreL (PLAVIX) Take 75 mg by 0 Active 75 mg tablet mouth daily. glimepiride (AMARYL) 2 Take 3 mg by mouth 0 Active MG tablet daily . furosemide (LASIX) 20 Take 20 mg by 0 Active MG tablet mouth daily as needed. conjugated estrogens Place 0.5 g 0 Active (PREMARIN) 0.625 vaginally twice a mg/gram vaginal cream week. cyanocobalamin, Take 5,000 mcg by 0 Active vitamin B-12, (vitamin mouth daily. B-12) 1000 MCG tablet folic acid (FOLVITE) Take 400 mcg by 0 Active 400 MCG tablet mouth daily. coenzyme Q10 200 mg Take 200 mg by 0 Active capsule mouth daily. ascorbic acid, vitamin Take 500 mg by 0 Active C, (ascorbic acid with mouth daily. marlin hips) 500 MG tablet magnesium gluconate Take 500 mg by 0 Active (MAGONATE) 27.5 mg mouth daily. magne- sium (500 mg) tablet cholecalciferol, Take 2,000 Units 0 Active vitamin D3, 2,000 unit by mouth daily. Tab cranberry fruit Take by mouth 0 Active extract (CRANBERRY daily. ORAL) UNKNOWN 3 (three) times 0 Acti ve daily numagula vitamin AREDS 2 . aspirin 81 MG EC Take 81 mg by 0 Active tablet mouth daily. Active Problems Problem Noted Date Left carotid artery stenosis 07/01/2020 Carotid artery disease 07/01/2020 Left carotid stenosis 06/24/2020 Type 2 diabetes mellitus with circulatory disorder, wi thout long-term 06/24/2020 current use of insulin Mixed hyperlipidemia 06/24/2020 Other specified hypothyroidism 06/24/2020 Encounters Date Type Specialty Care Team Description 07/16/2020 Office Visit Cardiology Keith Valderrama Postoperative state MD [facility] (Primary Dx) 07/01/2020 Surgery Keith Valderrama ENDARTERECTOM Y,CAROTID MD [facility] 07/01/2020 Anesthesia Event Quintin Ventura MD Malviya, Sanjana 07/01/2020 - Hospital Encounter Cardiology Keith Valderrama 2020 MD [facility] 07/01/2020 Travel 06/30/2020 Hospital Encounter Pre-Admission Testing 06/29/2020 Abstract Cardiology Yara Garduno, RN 06/23/2020 Office Visit Cardiology Keith Valderrama Pre-op testin iker Olson MD Left carotid st enosis; Type 2 diabetes mellitus with other circulatory complication, without long- term current use of insulin (HCC); Mixed hyperlipi demia; Other specified hypothyroidism after 09/29/2019 Family History Medical History Relation Name Comments Cancer Brother Hypertension Brother Cancer Daughter Hypertension Daughter Hypertension Father Stroke Father Heart disease Mother Hypertension Mother Relation Name Status Comments Brother Daughter Father Mother Social History Tobacco Use Types Packs/Day Years Used Date Never Smoker Smokeless Tobacco: Never Used Alcohol Use Drinks/Week oz/Week Comments Not Currently Sex Assigned at Date Recorded Not on file Last Filed Vital Signs Vital Sign Reading Time Taken Comments Blood Pressure 172/74 07/16/2020 12:37 PM [employer]ONT [employer]ERSON Pulse 92 07/16/2020 12:37 PM [employer] Temperature 36.7 C (98.1 F) 07/16/2020 12:37 PM [employer]ERSON Respiratory Rate 15 07/16/2020 12:37 PM [employer]ERSON Oxygen Saturation 99% 07/16/2020 12:37 PM [employer] PERSON Inhaled Oxygen Concentration - - Weight 83.5 kg (184 lb) 07/16/2020 12:37 PM [employer]ONT DES[employer] PERSON Height 157.5 cm (5' 2") 07/16/2020 12:37 PM [employer] PERSON Body Mass Index 33.65 07/16/2020 12:37 PM [employer] PERSON Plan of Treatment Health Maintenance Due Date Last Done Comments DIABETIC EYE EXAM 1950 DIABETIC FOOT EXAM 1950 URINE MICROALBUMIN 1950 HEPATITIS B VACCINE (1 of 3 - Risk 3-dose series) 1960 PNEUMOCOCCAL 65+ YRS (1 of 1 - [id number] PCV13) 2006 INFLUENZA VACCINE (#1) 2020 HEMOGLOBIN A1C 06/24/2020 DEPRESSION SCREENING (12+) 09/11/2020 MEDICARE ANNUAL WELLNESS (YEAR 2 or FIRST YEAR if no 09/12/2020 IPPE) Implants Implanted Type Area Systems Integration Engineer Device Identifier Shelf Model / Expiration Serial / Date Lot Patch Periph Vascu-Grd 0.8x8cm [id number] - [id number] IMPLANTS Le ft: [employer] [id number] 09/12/2024 [id number] / Implanted: Qty: 1 on 07/01/2020 by Keith Rodriguez MD at [facility] Neck TECH:SURG INNOV / [id number] Procedures Procedure Name Priority Date/Time Associated Comments Diagnosis TISSUE EXAM AP Routine 07/01/2020 9:35 Results for this AM CDT procedure are i n the results section. ENDARTERECTOMY,CAROTI 07/01/2020 7:26 Left carotid D AM CDT stenosis CBC W/PLT COUNT & Routine 07/01/2020 6:52 Result s for this AUTO DIFFERENTIAL AM CDT procedure are in the results section. ABORH, MANUAL STAT 07/01/2020 6:52 Results fo r this AM CDT procedure are i n the results section. PROTHROMBIN TIME/INR Routine 07/01/2020 6:52 Res ults for this AM CDT procedure are i n the results section. CBC W/PLT COUNT & Routine 07/01/2020 6:52 Result s for this AUTO DIFFERENTIAL AM CDT procedure are in the results section. BASIC METABOLIC PANEL Routine 07/01/2020 6:52 Re sults for this (7) AM CDT procedure are i n the results section. POCT-GLUCOSE METER Routine 07/01/2020 6:04 Resul ts for this AM CDT procedure are i n the results section. TYPE AND SCREEN, Routine 06/23/2020 3:46 Results for this AUTOMATED PM CDT procedure are i n the results section. after 09/29/2019 Results Tissue Exam (07/01/2020 9:35 AM CDT) Case Report Surgical Pathology Report Case: [id number] [facility] Authorizing Provider: Keith Santana MD Collected: 07/01/2020 09:35 AM [facility] Ordering Location: [facility] Received: 07/01/2020 10:53 AM [facility] Pathologist: Cecilio Aguilera MD Specimen: Plaque, LEFT CAROTID PLAQUE DIAGNOSIS ARTERY, LEFT FEMORAL, ENDARTERECTOMY: [facility] Electronically CALCIFIC ATHEROSCLEROTIC PLAQUE [facility] signed by Cecilio Aguilera Signing Pathologist Direct Phone Line: [facility] MD Maksim on 07/06/2020 at 2:13 PM CPT Code(s) 18020; 36131 [facility] CLINICAL HISTORY Left carotid stenosis. [facility] SPECIMEN SOURCE Plaque [facility] GROSS DESCRIPTION Received in formalin [facility] labeled with the [facility] patient's name, MEDICAL CENTER accession number and "left carotid plaque" is a 3.3 cm in length x 0.4 cm in diameter, vega-yellow, tubular piece of focally calcified plaque. Measuring Machine Tender sections are submitted in A1 following decalcification. PA/ew MICROSCOPIC PERFORMED [facility] Specimen Tissue - Plaque (morphologic abnormality ) Performing Organization Address City/State/Zipcode Phone Number [facility] [address] [place] [id number] C[facility] [place]H, manual (07/01/2020 6:52 AM CDT) Pathologist Sig nature ABO Grouping B [facility] Rh Factor POS [facility] Specimen Blood Performing Organization Address City/State/Zipcode Phone Number [facility] [address] [place] [address] CBC with platelet count + automated diff (07/01/2020 6:52 AM CDT) Pathologist Sig nature WBC 5.1 3.5 - 10.5 K/L [facility] RBC 4.10 3.93 - 5.22 [facility] M/L [facility] Hemoglobin 12.2 11.2 - 15.7 [facility] GM/DL [facility] Hematocrit 37.2 34.1 - 44.9 % [facility] MCV 90.7 79.4 - 94.8 fL [facility] MCH 29.8 25.6 - 32.2 pg [facility] MCHC 32.8 32.2 - 35.5 [facility] GM/[facility] RDW 13.4 11.7 - 14.4 % [facility] Platelets 183 150 - 450 K/CU [facility] MPV 8.8 (L) 9.4 - 12.3 fL [facility] nRBC 0 0 - 0 /100 WBC [facility] % Neutros 50 % [facility] % Lymphs 39 % [facility] % Monos 6 % [facility] % Eos 4 % [facility] % Baso 1 % [facility] # Neutros 2.56 1.56 - 6.13 [facility] # Lymphs 1.99 1.18 - 3.74 [facility] # Monos 0.33 0.24 - 0.36 [facility] # Eos 0.21 0.04 - 0.36 [facility] # Baso 0.04 0.01 - 0.08 [facility] K/L [facility] Immature 0 0 - 1 % [facility] Granulocytes-Relative [facility] Specimen Blood Performing Organization Address City/State/Zipcode Phone Number [facility] [address] [place] [phone] [place] Prothrombin time/INR (07/01/2020 6:52 AM CDT) Pathologist Sig nature Protime 13.3 11.9 - 14.2 seconds [facility] INR 1.04 <=5.90 [facility] Specimen Blood Narrative Performed At Effective 02/06/2019: PT Reference Range [facility] Change New: 11.9-14.2 Previous: 11.7-14.7 RECOMMENDED COUMADIN/WARFARIN INR THERAPY RANGES STANDARD DOSE: 2.0-3.0 Includes: PROPHYLAXIS for venous thrombosis, systemic embolization; TREATMENT for venous thrombosis and/or pulmonary embolus. HIGH RISK: Target INR is 2.5-3.5 for patients wiht mechanical heart valves. Performing Organization Address City/State/Zipcode Phone Number [address] [address] [place] Basic Metabolic Panel (07/01/2020 6:52 AM CDT) Sodium 138 136 - 145 meq/L [facility] Potassium 4.3Comment: Specimen 3.5 - 5.1 meq/L [facility] moderately hemolyzed [facility] Chloride 106 98 - 107 meq/L [facility] CO2 23 22 - 29 meq/L [facility] BUN 17 7 - 21 mg/dL [facility] Creatinine 0.83Comment: 0.57 - 1.25 [facility] Specimen moderately mg/dL [facility] hemolyzed [place] Glucose 145 (H) 70 - 105 mg/dL [facility] Calcium 9.5 8.4 - 10.2 [facility] mg/dL [facility] EGFR 66Comment: ESTIMATED mL/min/1.73 sq [facility] GFR IS NOT m [facility] CREATININE CLEARANCE IN PREDICTING GLOMERULAR FILTRATION RATE. ESTIMATED GFR IS NOT APPLICABLE FOR DIALYSIS PATIENTS. Specimen Blood Narrative Performed At Rent Control Office Manager ID - ODETTE Wilber [facility] Performing Organization Address [facility] [address]/Zipcode Phone Number [address] [address] CENTER POC-Glucose meter (07/01/2020 6:04 AM CDT) POC-Glucose Meter 159 (H) 70 - 110 [facility] Comment: mg/dL [facility] : TESTED AT [address], [address] MEDICAL CENTER : Rent Control Office Manager/Dog Raiser ID = [id number] for CARLOS PIERCE Specimen Blood Performing Organization Address [facility] [address]/[facility] Phone Number [address] [address] CENTER Type and screen, automated (06/23/2020 3:46 PM CDT) Pathologist Sig nature ABO/RH AUTOMATED B POSITIVE [facility] ([facility]) [facility] Ab Scrn NEGATIVE [facility] Specimen Blood Performing Organization Address City/[facility] [address]/[facility] Cent[facility]ode Phone Number [address] [address] after 09/29/2019 Insurance Payer Benefit Plan Subscriber ID Effective Phone Address Typ e / Group Dates AETNA - AETNA [id number] 2019-Pres [phone] [address] Map s MEDICARE MGD MEDICARE HMO ent [id number] Contracted CARE POS [place]ASPERRADHA [id number] Advance Directives For more information, please contact: [phone] Code Status Date Activated Date Inactivated Comments Full Code 07/01/2020 5:55 AM 2020 1:28 PM This code status was determined by: Patient
--- OUTSIDE RECORDS SUMMARY | 2020-09-29 06:26 | XMS REPORT | Clinical Summary ---
:1940 Author Organization [facility] Address [address] [place] [address] Care Team Providers Name Role Phone Elio Whitaker MD Primary Care Provider Allergies Active Allergy Reactions Severity Noted Date Comments Hydrocodone 12/13/2016 Medications Medication Sig Dispensed Refills Start Date End Date Status amLODIPine (NORVASC) 5 TK 1 T PO QD 0 11/29/2016 Active mg tablet levothyroxine TK 1 T PO QD 0 09/06/2016 Ac tive (SYNTHROID, LEVOXYL) 125 mcg tablet atorvastatin (LIPITOR) 0 11/28/2016 Active 20 MG tablet irbesartan-hydrochlorot TK 1 T PO QD 1 10/31/2016 Active hiazide (AVALIDE) 300-12.5 mg per tablet metFORMIN XR TK 2 TS PO QD 0 09/06/2016 Ac tive (GLUCOPHAGE-XR) 500 mg 24 hr tablet LUMIGAN 0.01 % 0 12/11/2016 Acti ve ophthalmic drops clopidogrel (PLAVIX) 75 TAKE ONE TABLET 90 tablet 2 11/12/2018 Active mg tablet BY MOUTH EVERY MORNING Active Problems Problem Noted Date Carotid disease, bilateral 12/13/2016 Surgical History Surgery Date Site/Laterality Comments STENT Medical History Medical History Date Comments Carotid artery occlusion Hyperlipidemia Hypertension Family History Medical History Relation Name Comments Stroke Father Relation Name Status Comments Father Social History Tobacco Use Types Packs/Day Years Used Date Never Smoker Alcohol Use Drinks/Week oz/Week Comments No Sex Assigned at Date Recorded Not on file Last Filed Vital Signs Not on file Plan of Treatment Health Maintenance Due Date Last Done Comments COVID-19 VACCINE (1 of 2) 1956 SHINGLES VACCINES (#1) 1991 65+ PNEUMOCOCCAL VACCINE (1 of 1 - PPSV23) 2006 INFLUENZA VACCINE 04/11/2020 Results Not on fileafter 09/29/2019 Advance Directives For more information, please contact: [phone] Type Date Recorded Patient Distance Learning Administrator Explanati on Advance Directives, Living Will and Medical Power of Induction Coordination Power Engineer
--- OUTSIDE RECORDS SUMMARY | 2020-09-29 06:27 | XMS REPORT | Continuity of Care Document ---
:1940 Author Organization [facility] t Address [address] [place] [address] Care Team Providers Name Role Phone Starla Whitaker MD Primary Care Physician Diamond Valderrama MD Attending Clinician DIAMOND VALDERRAMA Attending Clinician Unavailable Audrey ARGUELLO Attending Clinician Sherley Attending Clinician Unavailable Shaan BALDERRAMA S Attending Clinician Unavailable DIAMOND VALDERRAMA Admitting Clinician Unavailable Payers Payer Name Policy Type Policy Effective Date Expiration Date Sour ce Number AETNA - MEDICARE [id number] [address] [facility] CAREAETNA 00:00:00 - Medical MEDICARE HMO Center [id number] 09/[id number]-[id number] [address]Nbni Contracted Problems Condition Condition Condition Status Onset Resolution Last Treating Co mments Source Name Details Category Date Date Treatment Clinician Date Left Left Disease Active 2019-[address] [facility] carotid carotid 0-21 [facility] - artery artery 00:00: Medical stenosis stenosis 00 Center Carotid Carotid Disease Active 2019-[address] artery artery 0-21 [facility] - disease disease 00:00: Medical 00 Center Left Left Disease Active 2019-[address] [facility] carotid carotid 0-14 [facility] - stenosis stenosis 00:00: Medica l 00 Center Type 2 Type 2 Disease Active 2019-[address] [facility] [facility] diabetes diabetes 0-14 [facility] - mellitus mellitus 00:00: Medica l with 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, disorder, without without long-term long-term current current use of use of insulin insulin Mixed Mixed Disease Active 2019-09 [facility] hyperlipid hyperlipid 0-14 [facility]elia kes - emia emia 00:00: Medical 00 [place] Other Other Disease Active 2019-[address] [facility] [address] specified specified 0-14 Luke s - hypothyroi hypothyroi 00:00: Me dical dism dism 00 Center Carotid Carotid Disease Active [facility] disease, disease, 12-13 Method i bilateral bilateral 00:00: st 00 Allergies, Adverse Reactions, Alerts Allergy Allergy Status Severity Reaction(s) Onset Inactive Treating Comm ents Source Name Type Date Date Clinician Hydrocod Propensi Active [place] ty to 12-13 [facility] adverse 00:00: st reaction 00 s to drug Hydrocod Drug Active Other [facility] Allergy 04 reaction( [facility] - 00:00: s): Medical 00 Nausea/Vo Center miting Family History Family Member Diagnosis Comments Start Date Stop Date Source Natural father Stroke [facility] thodi Natural father Hypertension [facility] Natural father Stroke [facility] Natural brother Cancer [facility] Natural brother Hypertension [facility] Natural daughter Cancer [facility] Natural daughter Hypertension [facility] Natural mother Heart disease [facility] Natural mother Hypertension [facility] Social History Social Habit Start Date Stop Date Quantity Comments Source Sex Assigned At [facility] Tobacco use and 2020-07-16 2020-07-[address] [facility] exposure 00:00:00 00:00:00 [facility] Alcohol intake 2020-07-16 2020-07-16 Ex-drinker [facility] 00:00:00 00:00:00 (finding) [facility] Smoking Status Start Date Stop Date Source Never smoker [facility] Medications Ordered Filled Start Stop Current Ordering Indication Dosage Frequency Signature Comments Components Source Medication Medication Date Date Medication? Clinician (SIG) Name Name aspirin 81 2019-09 Yes 81mg QD Take [address] MG EC 05 by mouth [facility] - tablet 12:47: daily. [address] levothyroxi 2020-1 Yes 150ug Take [address] ne 1-05 mcg by [facility] - (SYNTHROID, 12:47: mouth Medic al LEVOTHROID) 19 Every Center 150 MCG morning on tablet an empty stomach. candesartan 2019-09 Yes 1{tbl} QD Take [address] -hydrochlor 1-05 tablet by Ag[facility]in es - othiazide 12:47: mouth Medical (ATACAND 19 daily. [place] HCT) 32-12.5 mg per tablet amLODIPine 2019-09 Yes 10mg QD Take [address] (NORVASC) 1-05 by mouth [facility] - 10 MG 12:47: daily. Medical tablet 19 [place] atorvastati 2019-09 Yes 20mg QD Take [address] n (LIPITOR) 1-05 by mouth Luke s - 20 MG 12:47: daily. Medical tablet 19 [place] clopidogreL 2019-09 Yes 75mg QD Take [address] (PLAVIX) 75 1-05 by mouth Luke s - mg tablet 12:47: daily. Medica l 19 [place] glimepiride 2019-09 Yes 3mg QD Take [address] (AMARYL) 2 1-05 by mouth [facility] - MG tablet 12:47: daily . Medic al 19 [place] furosemide 2019-09 Yes 20mg Take [address] (LASIX) 20 1-05 by mouth [facility] - MG tablet 12:47: daily as Medi jigar 19 needed. [place] conjugated 2019-[address] estrogens 1-05 g [facility] - (PREMARIN) 12:47: vaginally Me dical 0.625 19 twice a Center mg/gram week. vaginal cream cyanocobala 2019-09 Yes 5000ug QD Take 5,[address] [facility] min, 1-05 mcg by [facility] - vitamin 12:47: mouth Medical B-12, 19 daily. [place] (vitamin B-12) 1000 MCG tablet folic acid 2019-09 Yes 400ug QD Take [address] (FOLVITE) 1-05 mcg by [facility] - 400 MCG 12:47: mouth Medical tablet 19 daily. [place] coenzyme 2019-09 Yes 200mg QD Take [address] Q10 200 mg 1-05 mg by [facility] - capsule 12:47: mouth Medical 19 daily. [place] ascorbic 2019-09 Yes 500mg QD Take [address] acid, 1-05 mg by [facility] - vitamin C, 12:47: mouth Medica l (ascorbic 19 daily. [place] acid with marlin hips) 500 MG tablet magnesium 2019-09 Yes 500mg QD Take [address] gluconate 1-05 mg by [facility] - (MAGONATE) 12:47: mouth Medica l 27.5 mg 19 daily. [place] magne- sium (500 mg) tablet cholecalcif 2019-09 Yes 2000U QD Take 2,[address] [place], 1-05 Units by [facility] - vitamin D3, 12:47: mouth Medic al 2,000 unit 19 daily. [place] Tab cranberry 2019-09 Yes QD Take by [facility] S t fruit 1-05 mouth [facility] - extract 12:47: daily. Medical (CRANBERRY 19 Center ORAL) UNKNOWN 2019-09 Yes Q.[id number] 3 (three) [facility] 1-05 [id number] times [facility] - 12:47: 3D daily Medical 19 numagula Center vitamin AREDS 2 . clopidogrel Yes TAKE ONE Rivas damon (PLAVIX) 75 3-04 TABLET BY Met hodi mg tablet 00:00: MOUTH st 00 EVERY MORNING LUMIGAN Yes [facility] 0.01 % 4-02 Methodi ophthalmic 00:00: st drops 00 amLODIPine Yes TK 1 T PO Rivas damon (NORVASC) 5 3-21 QD Methodi mg tablet 00:00: st 00 atorvastati Yes Waqar n n (LIPITOR) 3-20 Methodi 20 MG 00:00: st tablet 00 irbesartan- Yes TK 1 T PO H deandra hydrochloro 2-20 QD Methodi thiazide 00:00: st (AVALIDE) 00 300-12.5 mg per tablet levothyroxi 2015-09 Yes TK 1 T PO H [place] ne 2-27 QD Methodi (SYNTHROID, 00:00: st LEVOXYL) 00 125 mcg tablet metFORMIN 2015-09 Yes TK 2 TS PO Rivas [place] XR 2-27 QD Methodi (GLUCOPHAGE 00:00: st -XR) 500 mg 00 24 hr tablet Vital Signs Vital Name Observation Time Observation Value Comments Source Systolic blood 2020-07-16 12:37:00 172 mm[Hg] [facility] - pressure Medical Center Diastolic blood 2020-07-16 12:37:00 74 mm[Hg] [facility] Heart rate 2020-07-16 12:37:00 92 /min [facility] Body temperature 2020-07-16 12:37:00 36.72 Carley [facility] Respiratory rate 2020-07-16 12:37:00 15 /min [facility] Body height 2020-07-16 12:37:00 157.5 cm [facility] Body weight 2020-07-16 12:37:00 83.462 kg [facility] BMI 2020-07-16 12:37:00 33.65 kg/m2 [facility] Oxygen saturation in 2020-07-16 12:37:00 99 /min [facility] Arterial blood by Medical Ce nter Pulse oximetry Procedures Procedure Date / Time Performed Performing Clinician [facility] e TISSUE EXAM 2020-07-01 09:35:00 Keith Valderrama [facility] ENDARTERECTOMY,CAROTID 2020-07-01 07:26:00 Keith Valderrama [facility] BASIC METABOLIC PANEL 2020-07-01 06:52:00 Nelli Childs [facility] () [facility] PROTHROMBIN TIME/INR 2020-07-01 06:52:00 Nelli Childs [facility] ABORH, MANUAL 2020-07-01 06:52:00 Noreen Page [facility] CBC W/PLT COUNT & AUTO 2020-07-01 06:52:00 Nelli Childs [facility] POCT-GLUCOSE METER 2020-07-01 06:04:00 Keith Valderrama [facility] TYPE AND SCREEN, 2020-06-23 15:46:[address] [facility] Plan of Care Planned Activity Planned Date Details Comments Source Future Scheduled 2020-09-[address] [facility] Test 00:00:00 WELLNESS (YEAR 2 or Medical Center FIRST YEAR if no IPPE) [code = MEDICARE ANNUAL WELLNESS (YEAR 2 or FIRST YEAR if no IPPE)] Future Scheduled 2020-09-[address] [facility] - Test 00:00:00 (12+) [code = Medical Center DEPRESSION SCREENING (12+)] Future Scheduled 2020-06-[address] [facility] kes - Test 00:00:00 measurement Medical Center (procedure) [code = 55548778] Future Scheduled 2020-05-12 INFLUENZA VACCINE (#1) [facility] - Test 00:00:00 [code = INFLUENZA Medical Ce nter VACCINE (#1)] Future Scheduled 2020-04-11 INFLUENZA VACCINE [facility] Test 00:00:00 [code = INFLUENZA VACCINE] Future Scheduled 2006 65+ PNEUMOCOCCAL [facility] Test 00:00:00 VACCINE (1 of 1 - PPSV23) [code = 65+ PNEUMOCOCCAL VACCINE (1 of 1 - PPSV23)] Future Scheduled 2006 PNEUMOCOCCAL 65+ YRS [facility] - Test 00:00:00 (1 of 1 - Medical Center [id number] PCV13) [code = PNEUMOCOCCAL 65+ YRS (1 of 1 - [id number] PCV13)] Future Scheduled 1991 SHINGLES VACCINES (#1) [place] [facility] [facility] Test 00:00:00 [code = SHINGLES VACCINES (#1)] Future Scheduled 1960 HEPATITIS B VACCINE ([address] [facility] - Test 00:00:00 of 3 - Risk 3-dose Medical C enter series) [code = HEPATITIS B VACCINE (1 of 3 - Risk 3-dose series)] Future Scheduled 1957 COVID-19 VACCINE (1 of [place] [facility] Test 00:00:00 2) [code = COVID-19 VACCINE (1 of 2)] Future Scheduled 1951 DIABETIC EYE EXAM [facility] - Test 00:00:00 [code = DIABETIC EYE Medical Center EXAM] Future Scheduled [address] [facility] es - Test 00:00:00 examination Medical Center (regime/therapy) [code = 391466488] Future Scheduled 1951 Urine screening for [facility] - Test 00:00:00 protein (procedure) Medical Center [code = 801553141] Results Test Description Test Time Test Comments Results Result Comments Source Tissue Exam 2020-07-06 14:13:00 Test Item Value Reference Range Interpretation Comme nts Case Report (test code = 104) Surgical Pathology Report Case: [id number] Authorizing Provider: Keith Valderrama MD Collected: 07/01/2020 09:35 AM Ordering Location: [facility] Received: 07/01/2020 10:53 AM PERIOPERATIVE SERVICES Pathologist: Cecilio Aguilera MD Specimen: Plaque, LEFT CAROTID PLAQUE DIAGNOSIS (test code = 3220) a3vgrWRnNLBmi1gbROApfCWrQaNpMhOyTuPgGz pc dWMxIHtccnRmMVxlcGljOTIwMFxhbnNpXHNwbHRw G6TiyxojTForIZ1zKR8rnAqybITeaUUiZMFfWgLe n2nsj657gMTct6hmCDRYfoqetXr6yGifY51nc8F2 EeybD40ewFFeMAbelJXjrytzwuNbYFUCVFKOUJjo ECXGKBCZAO2XYyXBEIUZMjPQVqASCyTPME8EDAzd kNLhGAGACERZZilKFXWFZQRHV7BFUQEWE1WFMzTF SIJPQXSrRYUdbb84WVA3FdNlq4U6VXG1DEOuTOCm t5jfYUVsyIJbXmJbXoCjIvLgHmkwhAXuTPNsTpBy t1kno763qVVuj4vpUQIjOuD4qQZzGZOivGAiR951 PTCrDIeia9hfl4QbERHoqYRft6D2PXOGdftktPm3 vJfxQ88or9K2LmrrA8qdGZFsQHNsO5ClZD7fZYHw Hvw8MKY0IHI5ILItWCBcE0MyQG2rEUVwfPXpLUr4 r0togBjuMALmWOM8u3leLLfabbCaOX2pej7elGy0 c0csgyOuMDLlERJduVEDWIClP8GdnFjdOj3ixZs2 dHkgGpebZJY3Nje9VU8ttl45hnh7dYfvWDMftyqq HpD5FSktSYQsworzXIb0RZtoRHIgpEF6YINgvMMf A2SgERQsVR0kdeh0WZK8AAzoKKTmWkF3PZTmjZPv OIRtxXadMNyza125ICC8LkExHV6fL7Ofd2Y0dT7c aMZlQRHguTRtPlAaMRXeid9ugBZzVOtsa3LuNQN7 tgR7sRFrkCGpGLIqFfL8JKsvNF9ave27YRBoLNS6 aa6flDNpkTdtptSjjPNkFKrzW7WzBWWqx441QKKt Q5WcDZNcq0L5wpOkQwLsLWJmsHT0jjW9SQYcTZ0x ohego9wiHJvlGHxaONJtymA3hlX0CFCmkZWkR4Zd gY8bVGXdRC5qkllid4urNPV6DAfpUIMuKKL2TfSr FEUkl7Hzngb4MmDfj4BaeXJmXXmuY70xa466KBZr jrJqY8oauQEzdrldxEMitsejYVlahuI4EOMoLSpp gmslSQVvDXepB6kgWeOjZYBpePfiQCjvt9NmVVFf MCOyXwLugDFpJXUfMsm6TYNtfUFsOSXsYmYzC0wl ctmxTjXQBPCiu5bcW3etzPNEwRTzD6CuQTwmpyLn BRdkPEpaZSCfZUG1AD73QdqeTQNtat93 CPT Code(s) (test code = 3357) p6emlUFsQBMkqXH0YmFmELXqs2rzo4BasJXf cGFy MWxuvGZkyiOzve20lHM7eR34UK1iHWNhKvE2MWDl hiS8Umh5ZWNmELYyvLRkI765o7ajx7ootpGgxQC6 nXzvIWAoEMEeMRavGDAoVeWzBNcrCHR4KBh3BoHi XHBhcn0= CLINICAL HISTORY (test code = 3356) q9kprVWgNDCaqVK6RkTvLZNlm9tou0S sdHBncGFy ULarlUCnoiAmjq40oGQ4uZ94IY8vCDSrLyH2ZHEw dhV9Qif1WMVkVBTgaJFzJ336x6iiw9weemUolPG2 fVxwYXJkXHBsYWluXGZzMjAgTGVmdCBjYXJvdGlk PFO3YC7ha0jjAquhZWP1 SPECIMEN SOURCE (test code = 3377) c4ksgHZlAMKaiSW9WpEoUPUmt8dvo9Mo dHBncGFy ZHkdtHBitkQzwj98kYX4pV30GA0eJGVwCqW1XIAt uvX0Hfn0JXRjTPGjuTWnS285n3obx7wfxnIrjRV8 fVxwYXJkXHBsYWluXGZzMjAgUGxhcXVlIFxwYXJ9 GROSS DESCRIPTION (test code = 3366) u4ugbKAcEMCfuNW9GdIuYWEsa8vle3 BsdHBncGFy UZwlwBLczwArrn84yVA6bC09MQ1dJSPcSgE6CZQz axH2Ely7SPYeWLEbyCCkO625i9sud4vegwUmlTM0 fUjyQZAcPUAcJMpuAGZoMzSuKbHnCAl5GDCxfN3a Lf7ltFDoyP1hdAPfGBsyCWE5wYOiOQLsWEFfBYEt IU63H8IxwlYzYBpvIWTkBBTvtG2dGN97hLMuabXj xyZhGhuyUrKvM7Tsu3XoOOPezXIomQFuHUmrNNCa Wt5jAFHaIDyoHPewzhg7uKB9RHFqJZQjyOJtzvNv aWFtZXRlciwgdGFuLXllbGxvdywgdHVidWxhciBw wEPxRIUdHgJsq6HfsFi4FIQetKXkQphqCHQaxQSl tFNbRBXiwRAen0RmdXB7zBGsMJKkH9Pon70yMLVi KTDtgXGphFT9PTMqiE3bPBLcGt8ppA91wZ6hSVRa Y3SsT1vopPDitSosud2bBJBqGBnemWSerF== MICROSCOPIC DESCRIPTION (test code = w2xgvAOyBBJkjNJ9AaYkIJYru9fdi5 BsdHBncGFy 3371) FOwmnITdxpNoiw26fUD7yZ13GK0xGCVrFfR9RLZo juB3Abd3BOFjMYGufYDbZ470w5emv7wdmsTimFQ7 iReyYLPvUIYiVDluHJOvUiGmGWZAWf7KWOFORCQy cn0= [facility] [id number] 14:13:00Surgical Pathology Report Case: [id number] Authorizing Provider: Keith Valderrama MD Collected: 07/01/2020 09:35 AM Ordering Location: [facility] Received: 07/01/2020 10:53 AM PERIOPERATIVE SERVICES Pathologist: Cecilio Aguilera MD Specimen: Plaque, LEFT CAROTID PLAQUE ARTERY, LEFT FEMORAL, ENDARTERECTOMY:CALCIFIC ATHEROSCLEROTIC PLAQUE Signing Pathologist Direct Phone Line: [phone] signed by Cecilio Aguilera MD on 07/06/2020 at 2:13 [id number]; [id number] carotid stenosis.Plaque Received in formalin labeled with the patient's name, accession number and "left carotid plaque" is a 3.3 cm in length x 0.4 cm in diameter, vega-yellow, tubular piece of focally calcified plaque. Guidance And Control System Engineer sections are submitted in A1 following decalcification. PA/ewPERFORMEDBasic Metabolic [id number] 07:25:00 Test Item Value Reference Range Interpretation Comments Sodium (test code = 138 meq/L 463-742 4763-2) Potassium (test code = 4.3 meq/L 3.5-5.1 Speci men 2823-3) moderately hemolyzed Chloride (test code = 106 meq/L 98-107 2075-0) CO2 (test code = 23 meq/L 22-29 2028-9) BUN (test code = 17 mg/dL 7-21 3094-0) Creatinine (test code 0.83 mg/dL 0.57-1.25 Specim en = 2160-0) moderately hemolyzed Glucose (test code = 145 mg/dL 70-105 H 2345-7) Calcium (test code = 9.5 mg/dL 8.4-10.2 05712-6) EGFR (test code = 66 mL/min/1.73 [place] [address]-2) NOT ACCURATE CREATININE CLEARANCE IN PREDICTING GLOMERULAR FILTRATION RATE . ESTIMATED GFR I S NOT APPLICABLE FOR DIALYSIS PATIENTS. JAYSON (test code = JAYSON) Junior Electrical Engineer ID - ODETTE C Lab Interpretation Abnormal (test code = 38532-5) [facility] [id number] 07:25:00 Test Item Value Reference Range Interpretation Comments SODIUM (BEAKER) 138 meq/L 136-145 (test code = 381) POTASSIUM (BEAKER) 4.3 meq/L 3.5-5.1 Specimen moderately (test code = 379) hemolyzed CHLORIDE (BEAKER) 106 meq/L 98-107 (test code = 382) CO2 (BEAKER) (test 23 meq/L 22-29 code = 355) BLOOD UREA NITROGEN 17 mg/dL 7-21 (BEAKER) (test code = 354) CREATININE (BEAKER) 0.83 mg/dL 0.57-1.25 Specimen moderately (test code = 358) hemolyzed GLUCOSE RANDOM 145 mg/dL 70-105 H (BEAKER) (test code = 652) CALCIUM (BEAKER) 9.5 mg/dL 8.4-10.2 (test code = 697) EGFR (BEAKER) (test 66 mL/min/1.73 ESTIMA CHACE GFR IS code = 1092) sq m NOT ACCURATE CREATININE CLEARANCE IN PREDICTING GLOMERULAR FILTRATION RATE . ESTIMATED GFR I S NOT APPLICABLE FOR DIALYSIS PATIEN TS. Junior Electrical Engineer ID - SEP CProthrombin time/[id number] 07:21:00 Test Item Value Reference Range Interpretation Comments Protime (test code = 13.3 11.9- 14.2 5902-2) seconds INR (test code = 1.04 <=5.90 6301-6) JAYSON (test code = JAYSON) Effective 02/06/2019: PT Reference Range ChangeNew: 11.9-14.2 Previous: 11.7-14.7 RECOMMENDED COUMADIN/WARFARIN INR THERAPY RANGESSTANDARD DOSE: 2.0-3.0 Includes: PROPHYLAXIS for venous thrombosis, systemic embolization; TREATMENT for venous thrombosis and/or pulmonary embolus.HIGH RISK: Target INR is 2.5-3.5 for patients wiht mechanical heart valves. Lab Interpretation Normal (test code = 76370-4) [facility]/[id number] 07:21:00 Test Item Value Reference Range Interpretation Comments PROTIME (BEAKER) (test code = 13.3 seconds 11.9-14.2 759) INR (BEAKER) (test code = 370) 1.04 <=5.90 Effective 02/06/2019: PT Reference Range ChangeNew: 11.9-14.2 Previous: 11.7- 14.7RECOMMENDED COUMADIN/WARFARIN INR THERAPY RANGESSTANDARD DOSE: 2.0-3.0 Includes: PROPHYLAXIS for venous thrombosis, systemic embolization; TREATMENT for venous thrombosis and/or pulmonary embolus.HIGH RISK: Target INR is2.5-3.5 for patients wiht mechanical heart valves.ABORH, [id number] 07:18:00 Test Item Value Reference Range Interpretation Comments ABO Grouping (test code = 2588) B Rh Factor (test code = 2589) POS [facility] + automated [id number] 07:09:00 Test Item Value Reference Range Interpretation Comments WBC (test code = 6690-2) 5.1 3.5- 10.5 K/L RBC (test code = 789-8) 4.10 3.93- 5.22 M/L MCHC (test code = 786-4) 32.8 32.2- 35.5 GM/DL Hematocrit (test code = 4544-3) 37.2 % 34.1-44.9 MCV (test code = 787-2) 90.7 fL 79.4-94.8 MCH (test code = 785-6) 29.8 pg 25.6-32.2 RDW (test code = 788-0) 13.4 % 11.7-14.4 Platelets (test code = 777-3) 183 150- 450 K/CU MM MPV (test code = 42596-7) 8.8 fL 9.4-12.3 L nRBC (test code = 413) 0 0- 0 /100 WBC % Neutros (test code = 429) 50 % % Lymphs (test code = 430) 39 % % Monos (test code = 431) 6 % % Eos (test code = 432) 4 % % Baso (test code = 437) 1 % # Neutros (test code = 670) 2.56 1.56- 6.13 K/L # Lymphs (test code = 414) 1.99 1.18- 3.74 K/L # Monos (test code = 415) 0.33 0.24- 0.36 K/L # Eos (test code = 416) 0.21 0.04- 0.36 K/L # Baso (test code = 417) 0.04 0.01- 0.08 K/L Immature Granulocytes-Relative 0 % 0-1 (test code = 2801) Lab Interpretation (test code = Abnormal 83432-3) [facility] W/PLT COUNT & AUTO [id number] 07:09:00 Test Item Value Reference Range Interpretation Comments WHITE BLOOD CELL COUNT (BEAKER) 5.1 K/ L 3.5-10.5 (test code = 775) RED BLOOD CELL COUNT (BEAKER) 4.10 M/ L 3.93-5.22 (test code = 761) HEMOGLOBIN (BEAKER) (test code = 12.2 GM/DL 11.2-15.7 410) HEMATOCRIT (BEAKER) (test code = 37.2 % 34.1-44.9 411) MEAN CORPUSCULAR VOLUME (BEAKER) 90.7 fL 79.4-94.8 (test code = 753) MEAN CORPUSCULAR HEMOGLOBIN 29.8 pg 25.6-32.2 (BEAKER) (test code = 751) MEAN CORPUSCULAR HEMOGLOBIN CONC 32.8 GM/DL 32.2-35.5 (BEAKER) (test code = 752) RED CELL DISTRIBUTION WIDTH 13.4 % 11.7-14.4 (BEAKER) (test code = 412) PLATELET COUNT (BEAKER) (test 183 K/CU MM 150-450 code = 756) MEAN PLATELET VOLUME (BEAKER) 8.8 fL 9.4-12.3 L (test code = 754) NUCLEATED RED BLOOD CELLS 0 /100 WBC 0-0 (BEAKER) (test code = 413) NEUTROPHILS RELATIVE PERCENT 50 % (BEAKER) (test code = 429) LYMPHOCYTES RELATIVE PERCENT 39 % (BEAKER) (test code = 430) MONOCYTES RELATIVE PERCENT 6 % (BEAKER) (test code = 431) EOSINOPHILS RELATIVE PERCENT 4 % (BEAKER) (test code = 432) BASOPHILS RELATIVE PERCENT 1 % (BEAKER) (test code = 437) NEUTROPHILS ABSOLUTE COUNT 2.56 K/ L 1.56-6.13 (BEAKER) (test code = 670) LYMPHOCYTES ABSOLUTE COUNT 1.99 K/ L 1.18-3.74 (BEAKER) (test code = 414) MONOCYTES ABSOLUTE COUNT (BEAKER) 0.33 K/ L 0.24-0.36 (test code = 415) EOSINOPHILS ABSOLUTE COUNT 0.21 K/ L 0.04-0.36 (BEAKER) (test code = 416) BASOPHILS ABSOLUTE COUNT (BEAKER) 0.04 K/ L 0.01-0.08 (test code = 417) IMMATURE GRANULOCYTES-RELATIVE 0 % 0-1 PERCENT (BEAKER) (test code = 2801) POC-Glucose [id number] 06:16:00 Test Item Value Reference Range Interpretation Comments POC-Glucose Meter (test 159 mg/dL 70-110 H : TE STED AT [facility] code = 1538) [address] [facility], 770 30: Junior Electrical Engineer/Techni jurgen ID = [id number] for STAN, LACRYST AL Lab Interpretation (test Abnormal code = 13741-0) [facility]SE [id number] 06:16:00 Test Item Value Reference Range Interpretation Comments POC-GLUCOSE METER 159 mg/dL 70-110 H : TESTED A T [facility] 6720 (BEAKER) (test code [facility], = 1538) [address]: Junior Electrical Engineer/Techni jurgen ID = [id number] for JORD AN, LACRYSTAL Type and screen, [id number] 17:16:00 Test Item Value Reference Range Interpretation Comments ABO/RH AUTOMATED (BEAKER) (test B POSITIVE code = 2260) Ab Scrn (test code = 890-4) NEGATIVE [facility]
[2020-09-29] MEDS ORDERED: NA CHLORIDE 0.9% 1,000 ML ONE (06:55)
[2020-09-29] MEDS ORDERED: CEFAZOLIN/SWI 1gm 1 GM/10 ML SYR ONE ×2 (06:56→08:16)
[2020-09-29] MEDS ORDERED: NA CHLORIDE 0.9% 100 ML IV ONE (07:13)
[2020-09-29] MEDS ORDERED: propofoL 200 MG/20 ML VIAL IV ONE (07:25)
[2020-09-29] MEDS ORDERED: ROCURONIUM 50 MG/5 ML VIAL IV ONE ×2 (07:25→09:12)
[2020-09-29] MEDS ORDERED: GLYCOPYRROLATE 0.2 MG/ML SYR ONE (07:25)
[2020-09-29] MEDS ORDERED: LIDOCAINE 2% MPF 5 ML VIAL ONE (07:26)
[2020-09-29] MEDS ORDERED: FENTANYL CITR 250 MCG/5 ML ONE (07:27)
[2020-09-29] MEDS ORDERED: MIDAZOLAM HCL 2 MG/2 ML INJ ONE (07:27)
[2020-09-29] MEDS ORDERED: SCOPOLAMINE HYDROBROMIDE PATCH TD ONE (07:44)
[2020-09-29] MEDS: CEFAZOLIN/SWI 1gm 1 GM/10 ML SYR ONE ×2 (07:45→07:46)
[2020-09-29] MEDS: VASOPRESSIN 20 UNIT/ML VIAL ONE ×2 (07:47→09:15)
[2020-09-29] MEDS ORDERED: ONDANSETRON 4 MG/2 ML VIAL ONE (07:55)
[2020-09-29] MEDS ORDERED: EPHEDRINE SULF 50 MG/ML VIAL ONE (08:29)
[2020-09-29] MEDS: NA CHLORIDE 0.9% 1,000 ML ONE ×2 (09:19→09:35)
[2020-09-29] MEDS ORDERED: LABETALOL 20 MG/4ML SYRINGE IV ONE (09:38)
[2020-09-29] MEDS ORDERED: PROMETHAZINE 25 MG TABLET PO PRN (12:04)
[2020-09-29] MEDS ORDERED: MORPHINE 4 MG/ML SYR IV PRN (12:04)
[2020-09-29] MEDS ORDERED: ONDANSETRON 4 MG/2 ML VIAL IV PRN (12:04)
[2020-09-29 12:09] VITALS: O2SAT 96
--- NOTE | 2020-09-29 12:16 | P.BOP ---
Preoperative diagnosis: stage 2 anterior apical prolapse, post wall defect and MERCED Postoperative diagnosis: stage 2 ut prolapse, left paravag defect, post defect+enterocele,MERCED Primary procedure: L SSLF cervicopexy,A/P repair, post enterocele repair,perineorrhaphy,TVT-O Secondary procedure: cystoscopy Automobile Rental Representative: Demi Hooks Estimated blood loss: 100 Specimen: none Findings: 0/+1/-1/5/mod/7/-1/-1/-2, post enterocele, left paravaginal defect Anesthesia: General Complications: None Drain(s): Urinary catheter Implants: TVT-O Transferred to: Recovery Room Condition: Good
[2020-09-29] MEDS: IBUPROFEN 200 MG TAB PO PRN (12:44)
[2020-09-29] MEDS: Ringers Lactate 1,000 ML IV SCH ×2 (13:28→21:30)
[2020-09-29] MEDS ORDERED: AMLODIPINE 10 MG TAB PO SCH (17:30)
[2020-09-29] MEDS: ACETAMINOPHEN 500 MG TAB PO PRN (20:20)
[2020-09-29] MEDS ORDERED: ATORVASTATIN 20 MG TAB PO SCH (21:00)
[2020-09-30] MEDS: Ringers Lactate 1,000 ML IV SCH (05:30)
[2020-09-30] MEDS ORDERED: LEVOTHYROXINE SOD 0.075 MG TAB PO SCH (06:30)
[2020-09-30 06:31] VITALS: TEMP 98
[2020-09-30 06:38] LABS: Absolute Lymphocytes (CBC) 1.6 K/uL (0.7-4.9); Basophils % 0.3 % (0-1.3); Hematocrit 34.8 % (36.0-45.0); Lymphocytes % 15.1 % (15.3-44.8); MPV 6.8 fL (7.6-11.3); RBC Red Blood Cell Count 3.91 M/uL (3.86-4.86)
[2020-09-30] MEDS: IBUPROFEN 200 MG TAB PO PRN (06:45)
[2020-09-30] MEDS ORDERED: GLIMEPIRIDE 2 MG TABLET PO SCH (08:00)
[2020-09-30] MEDS: ACETAMINOPHEN 500 MG TAB PO PRN (08:20)
[2020-09-30] MEDS ORDERED: hydroCHLOROthiazide 12.5 MG CAP PO SCH (09:00)
[2020-09-30] MEDS ORDERED: [UNRECOGNIZED DRUG - OTHER] PO SCH (09:00)
[2020-09-30] MEDS ORDERED: VALSARTAN 160 MG TAB PO SCH (09:00)
[2020-09-30] MEDS ORDERED: FUROSEMIDE 20 MG TABLET PO SCH (09:00)
[2020-09-30 11:29] VITALS: BP 144/72
--- NOTE | 2020-10-11 13:41 | OP ---
Date of Procedure: 09/29/2020 Surgeon: Jerilyn Jeter MD Poultry Sexer: Demi Hooks. Preoperative Diagnosis: Stage II anterior apical prolapse (vaginal wall prolapse and anterior wall p rolapse, which is cystocele), posterior wall defect, which is rectocele, and stress urinary incontine nce. Postoperative Diagnosis: Stage II anterior apical prolapse (vaginal wall prolapse and anterior wall prolapse, which is cystocele), posterior wall defect, which is rectocele, and stress urinary incontin ence, stage II uterine prolapse, lateral cystocele (left paravaginal defect in the anterior wall) rec tocele and posterior wall defect and posterior enterocele stress urinary incontinence. Procedures Performed: Left sacrospinous fixation, cervicopexy through the anterior approach, anterio r-posterior repair, posterior enterocele repair, perineorrhaphy, mid urethral sling (TVT-O) and cysto scopy. Estimated Blood Loss: 100. Specimens: No specimens. Complications: No complications. Drains: Singh catheter. Implants: TVT-O. Findings: Pop Q is as follows 0, +1, -1, 5, moderate, 7, -1, -1, -2, posterior enterocele and left p aravaginal defect present. Anesthesia: General endotracheal. Condition: The patient's condition is stable. Description Of Procedure: After informed consent was verified, antibiotics were given. The patient was taken back to the OR. She was consented in the preop area after answering all the questions and answers and explaining the procedural risks including bleeding, infection, injury to the bowel, bladd er and ureters, rare occurrences of urinary retention, revision of the sling, graft exposure from the urethra and urethral sling and very rare complications including fistula were all reviewed and quest ions were answered including recovery, expectations, hospital stay, and the patient was taken back to the OR. She was placed in a supine fashion on the operating table. General anesthesia was given. Time-out was done. She was placed in dorsal lithotomy position with an David Stirrups. Lower abdome n, vulva, vagina, perineum, and medial thighs were all prepped and draped in a sterile fashion. Fole y was placed to drain the bladder and retracted superiorly for retraction. Findings as above were noted after thorough pelvic exam was performed. After visualizing the clear l eft paravaginal defect to fix the apex. During the sacrospinous fixation on the left side through th e anterior approach due to the largest defect lesion on the anterior wall, this deemed to be most tyron table, so proceeded with this approach. Dilute vasopressin was injected in the anterior wall after i dentifying the urethrovesical junction between this and the cervix. After anterior vaginal wall was infiltrated, a midline incision was made with a 15 blade and vaginal epithelium and subepithelium wer e dissected away from the bladder. Once the space was developed in the right to the level of the par avesical space, then on the left side, the paravesical space was entered. The bladder was dissected off the cervix and the cervix was well exposed proximally. The paravesical space was entered and the pararectal space was entered. Ischial spine was palpated. The sacrospinous ligament was cleaned up sweeping the bowel medially. The bladder was dissected up to the urethrovesical junction. Once all this was reduced, this was sut ured with the help of 2-0 PDS sutures from side to side to keep the bladder reduced appropriately and two sutures were placed. Then, Prolene suture on a Capio device was taken and this was placed 2 cm medial to the ischial spine and the sacrospinous ligament, staying on the ligament without encircling it. After good bites were taken x2 with 2 sutures, these were held on hemostat. Then, these were t hen passed through the cervix in order for there to be good proximal fixation. Once the fixation poi nts were sutured to the cervix anteriorly, then the anterior vaginal wall closure was started with a 2-0 Vicryl from the proximal at least 2 cm. Then, the sacrospinous sutures were tied down and there was excellent apposition of the cervix all the way to the sacrospinous ligament. Once this was done, there was excellent lift on the apex as well excellent reduction on the anterior wall prolapse. The vaginal epithelial closure was completed in a horizontal mattress fashion without any trimming of th e vaginal wall. Mid urethral area was picked up with 2 Allis clamps on either side. Incision was made in the vaginal epithelium after infiltrating with dilute vasopressin, 1 cm. Dissection was carried under the fasci al plane towards the ipsilateral obturator space hugging the inferior pubic ramus at a 45-degree angl e to the horizontal and vertical plane. Obturators membrane was perforated and the track was created as the scissors pulled back and the tips were opened. Similar dissection on the opposite side was p erformed and TVT-O kit was opened, wing guide was taken and placed through the tract already created first on the right side. The spike was passed with the plastic sheath on it an along the wing guide to the obturator space. Then, this was turned hugging the inferior pubic ramus and exiting lateral t o the medial groin fold well below the adductor tendon. The plastic sheath was pulled out. The spik e was removed as well as the wing guide. Then, the sheath and the sling were gently pulled out of th e level of the skin incision and held with a Scarlet clamp. On opposite side, similar pass was done. The graft and the sheaths were pulled out and held with a Scarlet. The plastic dilators were cut. Mes h was tensioned in the suburethral area with the help of tips of Metzenbaum scissors. The sheaths we re pulled out gently without any tension leaving the tension appropriate without any pillowing. Then, the mesh was then cut, flush with the skin. Skin closed with Dermabond. Mid urethral area of the vaginal epithelium was closed with the help of 3-0 Vicryl in a continuous running horizontal vinny ress fashion. After excellent closure, thorough irrigation and suction was performed before and afte r. Then, the Singh was removed. Cystoscopy was performed with a 30-degree lens, normal saline, and 17-Nepali sheath. Excellent jets of urine from both ureteric orifices. No evidence of any trauma or foreign body in the bladder and the lateral rowe as well. No sling mesh. A Singh catheter was replaced and retracted superiorly and attached to a drainage bag. Posterior midline was then injected with dilute vasopressin. A gita-shaped skin incision was made in the distal half. Vaginal epithelium was excised off the connected connective tissue exposing the rectovaginal septum and its defect. Superiorly, there was a posterior enterocele that was dissected off at the vaginal wall. This was closed with the help of 3-0 Monocryl in a pursestring fashion. T he posterior wall defect and the fascial defect from the lateral wall and the perineal body was repai red with the help of continuous running 2-0 PDS. Perineal body was restructured with the help of 2-0 interrupted Vicryl sutures x2 and the vaginal epithelium was closed after trimming it slightly furth er to create a good closure and continuous 2-0 Vicryl horizontal mattress sutures were placed to clos e the posterior wall epithelium. Then, perineal body was closed with the help of 3-0 Vicryl in a con tinuous running subcutaneous and subcuticular fashion and suture tied inside the vestibule. On recta l exam, no evidence of any trauma or sutures. Vaginal packing was placed and the patient was cleaned up and instrument, needle, and sponge counts were correct. At the end of case, the patient tolerate d the procedure well. She was taken to the recovery room in stable condition. EBL 100. There was e xcellent repair of the apex, anterior and posterior wall after this was done. KRISH/RADHA Voice ID: [id number] Report ID: [id number]
== END 2020-09-30 10:58 | disposition home or self-care (01) ==
LOC: OR 06:23 → 2ND-WC 12:12 → OR 09-30 10:58
PROVIDERS: ATTEND Obstetrics & Gynecology
PROC: 0JQC0ZZ Repair Pelvic Region Subcutaneous Tissue and Fascia, Open Approach (ICD-10-PCS; 2020-09-29)
PROC: 0HQ9XZZ Repair Perineum Skin, External Approach (ICD-10-PCS; 2020-09-29)
PROC: 0TSD0ZZ Reposition Urethra, Open Approach (ICD-10-PCS; 2020-09-29)
PROC: 0USG7ZZ Reposition Vagina, Via Natural or Artificial Opening (ICD-10-PCS; principal; 2020-09-29 07:30)
DX: N81.12 Cystocele, lateral (principal); N39.3 Stress incontinence (female) (male); R39.14 Feeling of incomplete bladder emptying; N95.2 Postmenopausal atrophic vaginitis; R15.9 Full incontinence of feces; Z87.440 Personal history of urinary (tract) infections; Z20.822 Contact with and (suspected) exposure to COVID-19
CPT/HCPCS: 85025 ×2; 80048; 36415 ×2; 86900; 86850 ×2; 85610; 86901; 82947 ×2; 85730; 81003; 57282; 57250; 57288; U0002; J2704; J3010; J0690 ×3; J7120 ×3; J7030 ×2; J2405; J2250

== ENCOUNTER 2024-03-04 08:59 | Observation (INO) | payer OTHER ==
--- OUTSIDE RECORDS SUMMARY | 2024-03-04 09:05 | XMS REPORT | Clinical Summary ---
Author Name Unknown Organization [facility] Address [address] [place] [address] Care Team Providers Care Development Advisor Name Role Phone Elie Cartagena Unavailable Bryn Whitaker Unavailable Dina June MD Primary Care Provider [phone] Savanna Donahue DDS Unavailable [phone] Charito Srinivasan PhD Unavailable [phone] Peng Toledo MD Unavailable [phone] Lee Melton MD Unavailable Allergies Active Allergy Reactions Criticality Noted Date Comments Hydrocodone Other (See Comments) 12/13/2016 Other reaction(s): Nausea/Vomiting Other reaction(s): Nausea/Vomiting Medications Medication Sig Dispensed Refills Start Date End Date Status ascorbic acid (VITAMIN C) 500 mg tablet Take 2 tablets (1,000 mg) by mouth daily. 11/29/2017 Active aspirin 81 mg EC tablet Take 1 tablet (81 mg) by mouth at bedtime. 11/29/2017 Active candesartan-hydroch lorothiazide (ATACAND HCT) 32-12.5 mg per tablet Take 1 tablet by mouth daily. 09/11/2016 Active cholecalciferol, vitamin D3, 50 mcg (2,000 unit) capsule Take 2,000 Units by mouth daily. 11/29/2017 Active clopidogrel (PLAVIX) 75 mg tablet Take 1 tablet (75 mg) by mouth daily. LD 06/23/22 09/11/2009 Active cyanocobalamin, vitamin B-12, 5,000 mcg TbDL Dissolve 1 tablet on the tongue daily. 11/29/2017 Active estrogens, conjugated, (PREMARIN) vaginal cream Insert 1 g into the vagina every 72 hours. 09/11/2017 Active folic acid (FOLVITE) 400 mcg tablet Take 2 tablets (0.8 mg) by mouth daily. 11/29/2017 Active gabapentin (NEURONTIN) 100 mg capsule Take 2 capsules (200 mg) by mouth at bedtime. 09/11/2021 Active glimepiride (AMARYL) 4 mg tablet Take 0.5 tablets (2 mg) by mouth daily. 05/06/2022 Active hydrALAZINE (APRESOLINE) 50 mg tablet Take 1 tablet (50 mg) by mouth twice daily. 03/28/2022 Active magnesium gluconate (MAGONATE) 27.5 mg magne- sium (500 mg) tablet Take 1 tablet (500 mg) by mouth daily. Active coenzyme Q10 200 mg capsule Take 1 capsule (200 mg) by mouth daily. Active cranberry fruit extract (CRANBERRY EXTRACT ORAL) Take 1 capsule by mouth daily. Active OMEGA 3-RDQ-RTN-FISH OIL ORAL Take 2 capsules by mouth daily. 1 GM 1400 MG twice daily 11/29/2017 Active UNABLE TO FIND Take 3 capsules by mouth daily. Vitamin AREDS 2 Active zinc gluconate 50 mg tablet Take 1 tablet (50 mg) by mouth daily. Active selenium 200 mcg cap capsule Take by mouth. Two tablets per week Active lidocaine (lidocaine) 20 mg/mL (2%) viscous solutionIndications :Proliferative verrucous oral leukoplakia Swish and spit 5 mL every 8 (eight) hours as needed (oral pain). 200 mL 06/29/2022 Active Additional Information Patient not taking.Reason: No longer taking, Informant: Self, Reported on 06/23/2023 acetaminophen-codei ne (Tylenol-Codeine #3) 300 mg-30 mg tabletIndications:P roliferative verrucous oral leukoplakia Take 1-2 tablets by mouth every 4 (four) hours as needed (pain). 30 tablet 06/29/2022 Active Additional Information Patient not taking.Reason: No longer taking, Informant: Self, Reported on 06/23/2023 lidocaine (lidocaine) 20 mg/mL (2%) viscous solutionIndications :Proliferative verrucous oral leukoplakia Swish and spit 5 mL every 8 (eight) hours as needed (oral pain). 200 mL 06/29/2022 Active Additional Information Patient not taking.Reason: No longer taking, Reported on 06/23/2023 acetaminophen-codei ne (Tylenol-Codeine #3) 300 mg-30 mg tabletIndications:P roliferative verrucous oral leukoplakia Take 1 to 2 tablets by mouth every 4 (four) hours as needed (pain). 30 tablet 06/29/2022 Active Additional Information Patient not taking.Reason: No longer taking, Reported on 06/23/2023 sulfamethoxazole-tr imethoprim (BACTRIM DS) 800 mg-160 mg per tablet Take 1 tablet by mouth twice daily. 07/11/2022 Active levothyroxine (SYNTHROID, LEVOTHROID) 150 mcg tablet Take 1 tablet (150 mcg) by mouth daily. Takes ONLY 6 DAYS 12/13/2022 Active pravastatin (PRAVACHOL) 10 mg tablet 01/11/2023 Active UNABLE TO FIND Med Name: Biotin 1000 mcg 1 tab daily Active nebivolol (BYSTOLIC) 10 mg tablet Take by mouth daily. Active rosuvastatin (CRESTOR) 10 mg tablet Take 1 tablet (10 mg) by mouth at bedtime. 07/13/2023 Active bisoprolol (ZEBETA) 5 mg tablet Take 1 tablet (5 mg) by mouth daily. 12/24/2023 Active Active Problems Problem Noted Date Diagnosed Date Genuine stress incontinence 06/28/2022 History of urinary tract infection 06/28/2022 Incontinence of feces 06/28/2022 Oral lichen planus 06/28/2022 Peripheral neuropathy 06/28/2022 Obstructive sleep apnea 06/28/2022 Proliferative verrucous oral leukoplakia 022 Overview: Added automatically from request for surgery [id number] Left carotid artery stenosis 06/24/2020 Mixed hyperlipidemia 06/24/2020 Other specified hypothyroidism 06/24/2020 Type 2 diabetes mellitus 06/24/2020 Osteoarthritis of right knee joint 12/07/2017 Encounters Date Type Department Care Team Description 01/22/2024 10:07 AM CDT - 01/22/2024 11:59 PM CDT Hospital Encounter [facility] - [facility] [address] [facility], 10th Floor, [place] [address] Dina June MD Proliferative verrucous oral leukoplakia Discharge Disposition: Home 01/22/2024 9:30 AM CDT - 01/22/2024 10:06 AM CDT Hospital Encounter Oral Oncology [address] [facility] [address] [facility], 9th [place] [address] Savanna Donahue, DDS Proliferative verrucous oral leukoplakia (Primary Dx); Unspecified open wound of oral cavity, subsequent encounter; Oronasal fistula; Nasal regurgitation; Hypernasality Discharge Disposition: Home 01/22/2024 Orders Only Oral Oncology [address] [facility] [address] [facility], 9th [place] [address] Savanna Donahue, DDS Unspecified open wound of oral cavity, subsequent encounter (Primary Dx) 01/22/2024 Travel 10/12/2023 Orders Only [facility] [address] [facility], 10th Floor, [place] [address] Keyanna Osborn PA Proliferative verrucous oral leukoplakia (Primary Dx) 09/22/2023 Orders Only [facility] [address] [facility], [address]th [place] [address] Miranda Cagle PA Other acquired deformity of head (Primary Dx) 07/03/2023 9:25 AM CDT - 07/03/2023 11:59 PM CDT Hospital Encounter [facility] [address] [facility], 10th Floor, [place] [address] Dina June MD Proliferative verrucous oral leukoplakia Discharge Disposition: Home 07/03/2023 Travel 06/23/2023 12:07 PM CDT - 06/23/2023 11:59 PM CDT Hospital Encounter Oral Oncology [address] [facility] [address] [facility], 9th [place] [address] Savanna Donahue, DDS Proliferative verrucous oral leukoplakia (Primary Dx); Unspecified open wound of oral cavity, subsequent encounter; Oronasal fistula; Nasal regurgitation Discharge Disposition: Home 06/23/2023 Travel 06/13/2023 Orders Only Oral Oncology [address] [facility] [address] Bldg, 9th [place] [address] Savanna Donahue, DDS Proliferative verrucous oral leukoplakia (Primary Dx) 05/04/2023 Documentation [facility] [address] [facility] Main [address], 10th Floor, [place] [address] Aquilino Bennett 03/08/2023 10:56 AM CDT - 03/08/2023 11:59 PM CDT Hospital Encounter Oral Oncology [address] [facility] Main [address], 9th [place] [address] Savanna Donahue, DDS Proliferative verrucous oral leukoplakia (Primary Dx); History of reconstruction of oral cavity; Oral fistula; Nasal regurgitation; Encounter for observation for other suspected condition ruled out Discharge Disposition: Home 03/08/2023 Travel after 03/05/2023 Surgical History Surgery Date Site/Laterality Comments KNEE ARTHROPLASTY 2008 AND 2017 TX EXC LES MUCOSA & SBMCSL VESTIBULE MOUTH W/O RPR 06/29/2022 Mouth/Left Procedure: WLE midline palate and left maxillary gingival lesion; Surgeon: Dina June MD; Location: MAIN OR; Service: [facility] - HEAD & NECK SURGERY Medical devices from this surgery are in the Medical Devices section. TX UNLISTED PROCEDURE TONGUE FLOOR MOUTH 06/29/2022 Bilateral Procedure: LASER ABLATION OF ORAL CAVITY; Surgeon: Dina uJne MD; Location: MAIN OR; Service: [facility] - HEAD & NECK SURGERY Medical devices from this surgery are in the Medical Devices section. TX SUB GRFT F/S/N/H/F/G/M/D <100SQ CM 1ST 25 SQ CM 06/29/2022 Bilateral Procedure: APPLICATION OF SKIN SUBSTITUTE GRAFT TO MOUTH; Surgeon: Dina June MD; Location: MAIN OR; Service: [facility] - HEAD & NECK SURGERY Medical devices from this surgery are in the Medical Devices section. TX IMPRESSION & PREPARATION ORAL SURGICAL SPLINT 06/29/2022 Mouth/Bilateral Procedure: TAKING IMPRESSION FOR ORAL SURGICAL SPLINT AND CUSTOM PREPARATION OF SPLINT; Surgeon: Savanna Donahue DDS; Location: MAIN OR; Service: ORAL ONCOLOGY & MAXILLOFACIAL PROSTHODONTICS Medical devices from this surgery are in the Medical Devices section. CAROTID STENT 09/11/2009 - 09/10/2010 Right BUNIONECTOMY 09/11/2014 - 09/10/2015 Right CATARACT EXTRACTION, BILATERAL 09/11/2018 - 09/10/2019 Bilateral CAROTID ARTERY ANGIOPLASTY 09/11/2019 - 09/10/2020 Left OTHER SURGICAL HISTORY 09/11/2020 - 09/10/2021 bladder lift BASAL CELL CARCINOMA EXCISION 09/11/2021 - 09/10/2022 Left removed from left leg Medical History Medical History Date Comments Hypertension 20 PLUS YEARS Hyperlipidemia 20 PLUS YEARS Swallowing problem 3 YEARS Dependence on continuous pos itive airway pressure ventilation 5 YEARS Urinary incontinence 2 YEARS HAD BLADDER LIFT Menopause 26 YEARS Arthritis 16 YEARS Disorder of thyroid gland 56 YEARS Diabetes mellitus 5 YEARS Basal cell carcinoma of skin 8 MONTHS REM NADER FROM LEFT LEG Family History Medical History Relation Name Comments Breast cancer Sister Savi Orozco Relation Name Status Comments Sister Savi Orozco Social History Tobacco Use Types Packs/Day Years Used Date Smoking Tobacco: Never Smokeless Tobacco: Never Tobacco Cessation:Counseling Given: Not Answered Alcohol Use Standard Drinks/Week Comments Never 0 (1 standard drink = 0.6 oz pur e alcohol) Education Answer Date Recorded What is the highest level of school you have completed or the highest degree you have received? High school graduate 06/28/2022 Sex and Gender Information Value Date Recorded Sex Assigned at Female 05/26/2022 9:41 AM CDT Gender Identity Female 05/26/2022 9:41 AM CDT Sexual Orientation Straight 06/14/2022 7: 37 AM CDT Job Start Date Occupation Industry Not on file Not on file Not on file Obstetrics History Last Filed Vital Signs Vital Sign Reading Time Taken Comments Blood Pressure 149/66 01/22/2024 10:15 AM CDT Pulse 83 01/22/2024 10:15 AM CDT Temperature 37 C (98.6 F) 01/22/2024 10:15 AM CDT Respiratory Rate 18 01/22/2024 10:15 AM CDT Oxygen Saturation 98% 01/22/2024 10:15 AM CDT Inhaled Oxygen Concentration - - Weight 80.5 kg (177 lb 7.5 oz) 01/22/2024 10:09 AM CDT Height - - Body Mass Index 32.25 02/14/2023 1:32 PM CDT Plan of Treatment Upcoming Encounters Date Type Department Care Team (Late st Contact Info) Description 01/20/2025 10:00 AM CDT Appointment [facility] [address] [place] [address], 10[address], [place] [address] Dina June MD [address] [place] [phone] [email or web address] Maintenance Due Date Last Done Comments COVID-19 Vaccine ( season) 2023 Influenza Vaccine 05/12/2024 Medical Devices Implanted Type Area Field Services Manager Device Identifier Shelf Expiration Date Model / Serial / Lot Bilayer Wound Dressing 2in X 2 In - [id number] Implanted:Qty : 1 on 06/29/2022 by Dina June MD at [facility] Skin/Tis jason Left: Hard Palate [employer] 11/09/2023 BM-2020 / / [id number] Care Teams Development Advisor Relationship Specialty Start Date End Date Elie Cartagena [address] [place] [address] [place] [address] [email or web address] PCP - External Referring Otolaryngology 05/20/22 Bryn Whitaker PCP - External Primary Care Provider 05/26/22 Dina June MD [address] [place] [phone] [email or web address] PCP - General Head and Neck Surgery 05/26/22 Savanna Donahue DDS [address] [place] [phone] [email or web address] Consulting Physician Dental Oncology 06/22/22 Charito Srinivasan, PhD [address] [place] [phone] [email or web address] Speech Language Pathologist Speech Pathology 09/20/22 Peng Toledo MD [address] [place] [phone] [email or web address] Consulting Physician Internal Medicine 06/28/22 Lee Melton MD [address] [place] [phone] [email or web address] Consulting Physician Plastic and Reconstructive Surgery 02/14/23
[2024-03-04 09:46] LABS: Absolute Eosinophils 0.2 K/uL (0-0.5); Absolute Lymphocytes (CBC) 1.8 K/uL (0.7-4.9); Absolute Monocytes 0.4 K/uL (0.1-1.3); Absolute Neutrophil 2.8 K/uL (1.8-8.0); Basophils % 0.9 % (0-1.3); Hematocrit 32.7 % (36.0-45.0); Hemoglobin 11.5 g/dL (12.0-15.0); Lymphocytes % 34.6 % (15.3-44.8); MCHC 35.2 g/dL (32.0-36.0); MPV 6.4 fL (7.6-11.3); Monocytes % 7.2 % (3.3-12.3); Neutrophils % 53.3 % (41.7-73.7); Platelets 174 thou/uL (152-406); RBC Red Blood Cell Count 3.71 M/uL (3.86-4.86); Red Cell Distribution Width 13.7 % (12.1-15.2)
[2024-03-04 10:05] LABS: ALT/SGPT 24 U/L (13-56); AST/SGOT 17 U/L (15-37); Albumin 3.3 g/dL (3.4-5.0); Albumin/Globulin Ratio 0.8 (1.1-1.8); Alkaline Phosphatase 68 U/L (45-117); Anion Gap 6.8 mEq/L (5.0-15.0); BUN Blood Urea Nitrogen 23 mg/dL (7-18); Bicarbonate 28 mEq/L (21-32); Bilirubin Total 0.5 mg/dL (0.2-1.0); Globulin 4.3 g/dL (2.3-3.5); Glomerular Filtration Rate 75 ml/min (=/>90); Glucose Level 152 mg/dL (74-106); NT PRO-BNP 507 pg/mL (<450); Potassium 3.8 mEq/L (3.5-5.1); Protein, Total 7.6 g/dL (6.4-8.2); Sodium Level 141 mEq/L (136-145); Troponin High Sensitivity 5.4 pg/mL (<58.9)
[2024-03-04 10:06] LABS: Bilirubin Direct < 0.2 mg/dL (0-0.2); Bilirubin Indirect, Calculated 0.3 mg/dL (0.2-0.8)
--- NOTE | 2024-03-04 10:16 | EDPHYS ---
Physician Documentation [facility] Name: Remedios Rothman Age: 83 yrs Sex: Female : 1940 Arrival Date: 03/04/2024 Time: 08:59 Bed 13 Private MD: ED Physician Caden Damian HPI: 03/04 09:16 This 83 yrs old Female presents to ER via EMS with complaints of chest pain, dyspnea. rn 09:16 The patient or guardian reports chest pain that is located primarily in the substernal rn area. Onset: 1 month(s) ago. The pain radiates to Associated signs and symptoms: Pertinent positives: lightheadedness, shortness of breath, Pertinent negatives: abdominal pain, cough, diaphoresis, lower extremity pain, lower extremity swelling, syncope, vomiting. The chest pain is described as a heaviness. Duration: The patient or guardian reports multiple episodes, that are intermittent. Modifying factors: The symptoms are alleviated by nothing. the symptoms are aggravated by exertion. Severity of pain: At its worst the pain was moderate in the emergency department the pain has improved. The patient has not experienced similar symptoms in the past. Patient reports chest pain and shortness of breath for the last month. Has been happening daily, worse with exertion, associated with lightheadedness and dizziness. No syncopal episodes. Patient has Doppler scheduled later this week. Has had carotid stenting but no stents in the heart. No known valvular problems. No fever or hemoptysis. Does not feel ill. Currently denies any symptoms. Historical: - Allergies: 09:05 No Known Allergies; rs5 - PMHx: 09:05 Hypercholesterolemia; Hypertensive disorder; Diabetes mellitus; rs5 - PSHx: 09:05 None; rs5 - Immunization history:: Adult Immunizations up to date. - Infectious Disease History:: Denies. - Family history:: not pertinent. - Social history:: Smoking status: Patient denies any tobacco usage or history of. - Hospitalizations: : No recent hospitalization is reported. ROS: 09:16 Constitutional: Negative for fever, chills, and weight loss, Cardiovascular: Positive rn for chest pain Respiratory: Positive for shortness of breath Abdomen/GI: Negative for abdominal pain, nausea, vomiting, diarrhea, and constipation, MS/Extremity: Negative for injury and deformity, Skin: Negative for injury, rash, and discoloration, Neuro: Negative for headache, weakness, numbness, tingling, and seizure, Exam: 09:16 Constitutional: This is a well developed, well nourished patient who is awake, alert, rn and in no acute distress. Cardiovascular: Regular rate and rhythm. No murmur. No pulse deficits. Respiratory: Speaking full sentences, unlabored. No increased work of breathing, no retractions or nasal flaring. Abdomen/GI: Soft, non-tender MS/ Extremity: Pulses equal, no cyanosis. Neurovascular intact. Full, normal range of motion. Equal circumference. Neuro: Awake and alert, GCS 15 10:17 ECG was reviewed by the Attending Physician. rn Vital Signs: 09:05 BP 184 / 83; Pulse 77; Resp 17; Temp 97.8(O); Pulse Ox 99% on R/A; rs5 11:12 BP 174 / 69; Pulse 55; Resp 17; Pulse Ox 99% on R/A; rs5 MDM: 09:04 Patient medically screened. rn 10:12 Differential diagnosis: acute myocardial infarction, acute pericarditis, anxiety, rn coronary artery disease congestive heart failure costochondritis, pericarditis, pleurisy, pneumonia, pneumothorax, stable angina, unstable angina. HEART Score: History: Moderately Suspicious (1), ECG: Non specific repolarization disturbance / LBTB / PM (1), Age: > or = 65 years (2), Risk Factors: > or = 3 Risk factors for atherosclerotic disease (2), Troponin: < or = 1 x Normal Limit (0), Total Score = 6. The patient was given aspirin in the Emergency Department. Data reviewed: vital signs, nurses notes, lab test result(s), EKG, radiologic studies, plain films. Independent interpretation of the following test(s) in the Emergency Department EKG: See my EKG interpretation above X-Ray: My interpretation is Chest x-ray images negative for pneumonia or pneumothorax per my interpretation. 10:13 Consideration of Admission/Observation Patient was admitted/placed on observation. rn Escalation of care including admission/observation considered. Counseling: I had a detailed discussion with the patient and/or guardian regarding the historical points, exam findings, and any diagnostic results supporting the discharge/admit diagnosis, lab results, radiology results, the need for further work-up and treatment in the hospital. 03/04 09:15 Order name: Basic Metabolic Panel; Complete Time: 10:11 rn 03/04 09:15 Order name: CBC with Diff; Complete Time: 10:04 rn 03/04 09:15 Order name: LFT's; Complete Time: 10:11 rn 03/04 09:15 Order name: NT PRO-BNP; Complete Time: 10:11 rn 03/04 09:15 Order name: PT-INR rn 03/04 09:15 Order name: Troponin HS; Complete Time: 10:11 rn 03/04 12:09 Order name: T4 Free EDMS 03/04 12:09 Order name: Thyroid Stimulating Hormone EDMS 03/04 12:09 Order name: Urinalysis w/ reflexes EDMS 03/04 12:09 Order name: Basic Metabolic Panel EDMS 03/04 12:09 Order name: Basic Metabolic Panel EDMS 03/04 12:09 Order name: Basic Metabolic Panel EDMS 03/04 12:09 Order name: Basic Metabolic Panel EDMS 03/04 12:09 Order name: Basic Metabolic Panel EDMS 03/04 12:09 Order name: Basic Metabolic Panel EDMS 03/04 12:09 Order name: CBC with Automated Diff EDMS 03/04 12:09 Order name: CBC with Automated Diff EDMS 03/04 12:09 Order name: CBC with Automated Diff EDMS 03/04 12:09 Order name: CBC with Automated Diff EDMS 03/04 12:09 Order name: CBC with Automated Diff EDMS 03/04 12:09 Order name: CBC with Automated Diff EDMS 03/04 12:09 Order name: Hemoglobin A1c EDMS 03/04 12:09 Order name: Hemoglobin A1c EDMS 03/04 12:09 Order name: Lipid Profile EDMS 03/04 12:09 Order name: Lipid Profile EDMS 03/04 12:09 Order name: Magnesium EDMS 03/04 12:09 Order name: Magnesium EDMS 03/04 12:09 Order name: Magnesium EDMS 03/04 12:09 Order name: Magnesium EDMS 03/04 12:09 Order name: Magnesium EDMS 03/04 12:09 Order name: Magnesium EDMS 03/04 12:09 Order name: Phosphorus EDMS 03/04 12:09 Order name: Phosphorus EDMS 03/04 12:09 Order name: Phosphorus EDMS 03/04 12:09 Order name: Phosphorus EDMS 03/04 12:09 Order name: Phosphorus EDMS 03/04 12:09 Order name: Phosphorus EDMS 03/04 12:09 Order name: Troponin High Sensitivity EDMS 03/04 12:09 Order name: Troponin High Sensitivity EDMS 03/04 12:09 Order name: Troponin High Sensitivity EDMS 03/04 09:15 Order name: XRAY Chest (1 view); Complete Time: 11:27 rn 03/04 12:09 Order name: Echo with Doppler [facility] 03/04 09:15 Order name: EKG; Complete Time: 09:16 rn 03/04 09:15 Order name: Cardiac monitoring; Complete Time: :55 rn 03/04 09:15 Order name: EKG - Nurse/Tech; Complete Time: :55 rn 03/04 09:15 Order name: IV Saline Lock; Complete Time: :55 rn 03/04 09:15 Order name: Labs collected and sent; Complete Time: :55 rn 03/04 09:15 Order name: O2 Per Protocol; Complete Time: rn 03/04 09:15 Order name: O2 Sat Monitoring; Complete Time: :55 rn EC:17 Rate is 70 beats/min. Rhythm is regular. QRS [place] is Normal. MN interval is prolonged. rn QRS interval is normal. QT interval is normal. No Q waves. T waves are Normal. No ST changes noted. Clinical impression: 1st degree heart block. Interpreted by me. Reviewed by me. Administered Medications: 10:20 Drug: Aspirin PO Chewable Tablet 324 mg PO once; 81 mg tablets x 4 Route: PO; rs5 Disposition Summary: 03/04/24 10:15 Hospitalization Ordered Notes: Hospitalization Status: Observation rn Provider: Alirio Damian rn Condition: Stable rn Problem: new rn Symptoms: are unchanged rn Bed/Room Type: Standard rn Location: Telemetry/MedSurg (observation)(03/04/24 12:41) bd Room Assignment: 232(03/04/24 12:41) bd Diagnosis - Chest pain, unspecified rn - Dyspnea, unspecified rn Forms: - Medication Reconciliation Form rn - SBAR form rn - Leadership Thank You Letter rn Signatures: Dispatcher [facility] Remed[facility] Vera Caden Damian MD MD rn Sotelo, Ricky, RN RN rs5 Corrections: (The following items were deleted from the chart) 10:15 Telemetry/MedSurg (observation) rn bd 57 10:15 rn bd 12: 11:57 [facility] ER HOLD bd bd 11:57 ERHOLD- bd bd
--- NOTE | 2024-03-04 10:16 | ER ---
Nurse's Notes [facility] Name: Remedios Rothman Age: 83 yrs Sex: Female : 1940 Arrival Date: 03/04/2024 Time: 08:59 Bed 13 Private MD: Diagnosis: Chest pain, unspecified;Dyspnea, unspecified Presentation: 03/04 09:03 Chief complaint: EMS states: C/O intermittent chest tightness and SOB upon exertion x 1 ph month, has seen cardiology has doppler scheduled next week, all VSS, Spo2 98% after ambulating to stretcher. Coronavirus screen: Vaccine status:. Ebola Screen: No symptoms or risks identified at this time. Initial Sepsis Screen: Does the patient meet any 2 criteria? No. Patient's initial sepsis screen is negative. Does the patient have a suspected source of infection? No. Patient's initial sepsis screen is negative. Risk Assessment: Do you want to hurt yourself or someone else? Patient reports no desire to harm self or others. 09:03 Method Of Arrival: EMS: [facility] ph 09:03 Acuity: [facility] 3 ph 09:05 Onset of symptoms was March 04, 2024. rs5 09:06 Care prior to arrival: IV initiated. 20 GA, in the left forearm. rs5 Historical: - Allergies: 09:05 No Known Allergies; rs5 - PMHx: 09:05 Hypercholesterolemia; Hypertensive disorder; Diabetes mellitus; rs5 - PSHx: 09:05 None; rs5 - Immunization history:: Adult Immunizations up to date. - Infectious Disease History:: Denies. - Family history:: not pertinent. - Social history:: Smoking status: Patient denies any tobacco usage or history of. - Hospitalizations: : No recent hospitalization is reported. Screenin:05 [facility] ED Fall Risk Assessment (Adult) History of falling in the last 3 months, rs5 including since admission No falls in past 3 months (0 pts) Confusion or Disorientation No (0 pts) Intoxicated or Sedated No (0 pts) Impaired Gait Yes (1 pt) Mobility Assist Device Used No (0 pt) Altered Elimination No (0 pt) Score/Fall Risk Level 0 - 2 = Low Risk Oriented to surroundings, Maintained a safe environment. 09:05 Abuse screen: Denies threats or abuse. Nutritional screening: No deficits noted. rs5 Tuberculosis screening: No symptoms or risk factors identified. Assessment: 09:01 General: Appears in no apparent distress. comfortable, Behavior is calm, cooperative. rs5 Pain: Denies pain. Neuro: Level of Consciousness is awake, alert, obeys commands, Oriented to person, place, time, situation. Cardiovascular: Patient's skin is warm and dry. Rhythm is regular. Cardiovascular: Reports intermittent chest tightness x1 month. Respiratory: Reports shortness of breath Airway is patent Respiratory effort is even, unlabored, Respiratory pattern is regular, symmetrical. GI: Abdomen is round non-distended, Abd is soft and non tender X 4 quads. : No signs and/or symptoms were reported regarding the genitourinary system. EENT: No signs and/or symptoms were reported regarding the EENT system. Derm: Skin is intact, Skin is pink, warm \T\ dry. Musculoskeletal: Range of motion: intact in all extremities. 10:09 Reassessment: Patient and/or family updated on plan of care and expected duration. Pain rs5 level reassessed. Patient is alert, oriented x 3, equal unlabored respirations, skin warm/dry/pink. 11:12 Reassessment: Patient and/or family updated on plan of care and expected duration. Pain rs5 level reassessed. Patient is alert, oriented x 3, equal unlabored respirations, skin warm/dry/pink. Vital Signs: 09:05 BP 184 / 83; Pulse 77; Resp 17; Temp 97.8(O); Pulse Ox 99% on R/A; rs5 11:12 BP 174 / 69; Pulse 55; Resp 17; Pulse Ox 99% on R/A; rs5 ED Course: 09:01 Patient arrived in ED. oe 09:04 Caden Damian MD is Attending Physician. rn 09:05 Triage completed. ph 09:05 Patient has correct armband on for positive identification. Placed in gown. Bed in low rs5 position. Call light in reach. Side rails up X2. 09:06 Arm band placed on right wrist. rs5 09:30 David Tristan RN is Primary Nurse. rs5 10:05 XRAY Chest (1 view) In Process Unspecified. EDMS 10:15 Alirio Damian MD is Hospitalizing Provider. rn 11:00 IV discontinued, intact, bleeding controlled, No redness/swelling at site. Pressure rs5 dressing applied. 11:10 No provider procedures requiring assistance completed. rs5 Administered Medications: 10:20 Drug: Aspirin PO Chewable Tablet 324 mg PO once; 81 mg tablets x 4 Route: PO; rs5 Medication: 11:13 VIS not applicable for this client. rs5 Outcome: 10:15 Decision to Hospitalize by Provider. rn 11:02 Admitted to ER Hold. Please see [facility] for further documentation. rs5 11:02 Condition: stable 11:02 Instructed on the need for admit, Demonstrated understanding of instructions, 14:06 Patient left the ED. rs5 Signatures: Dispatcher [employer] EDMS Caden Damian MD MD rn Hall, Patricia, RN RN Augusto Treadwell Ricky, RN RN rs5 Corrections: (The following items were deleted from the chart) 15:13 12:00 IV discontinued, intact, bleeding controlled, No redness/swelling at site. rs5 Pressure dressing applied, rs5
[2024-03-04] MEDS ORDERED: ASPIRIN 81 MG CHEWABLE TABLET ONE (10:43)
--- NOTE | 2024-03-04 11:23 | RAD REPORT ---
EXAM DESCRIPTION: [facility] Single View03/04/2024 10:03 am CLINICAL HISTORY: Chest pain;Dyspnea COMPARISON: Chest Pa And Lat (2 Views) dated 06/15/2020; CHEST PA AND LAT 2 VIEW dated 12/04/2012; MESSI ST PA AND LAT 2 VIEW dated 08/28/2008; CHEST PA AND LAT 2 VIEW dated 10/11/2006 TECHNIQUE: Portable AP view of the chest. FINDINGS: The lungs are clear. No pneumothorax or effusion. The cardiomediastinal contours are unre markable. IMPRESSION: No acute cardiopulmonary process.
--- NOTE | 2024-03-04 11:40 | P.HP ---
Certification for Inpatient Patient admitted to: Observation With expected LOS: <2 Midnights Patient will require the following post-hospital care: None Practitioner: I am a practitioner with admitting privileges, knowledge of patient current condition, hospital course, and medical plan of care. Services: Services provided to patient in accordance with Admission requirements found in Title 42 Section 412.3 of the Code of Federal Regulations Patient History Date of Service: 03/04/24 Reason for admission: Chest pain r/o History of Present Illness: Remedios Rothman is an 83 year old female with Pmhx Osteoarthritis, hypertension, diabetes, glaucoma, hypercholesterolemia, right carotid stent (2009), and left carotid endarterectomy (2019) who presents to the ED with chief complaint of chest pain, dyspnea on exertion, and dizziness for 1 month. She reports not feeling dizzy while she is in a supine position. She has no family history of heart disease. On examination she is in no acute distress, not short of breath, lung sounds clear, and hemodynamically stable. Laboratory evaluation troponin 5.4, BNP 507, serum glucose 152 Initial vital BP 184 / 83; Pulse 77; Resp 17; Temp 97.8(O); Pulse Ox 99% on R/A; Chest x-ray reports " No acute cardiopulmonary process." Remedios will be admitted to hospitalist service for further evaluation and treatment, cardiology has been consulted. Allergies hydrocodone Adverse Reaction (Verified 03/04/24 14:33) Nausea/Vomiting Home Medications: Ascorbic Acid [Vitamin C*] 1,000 mg PO DAILY 11/29/17 Aspirin [Aspirin EC 81 MG] 81 mg PO DAILY 11/29/17 Cholecalciferol (Vitamin D3) [Vitamin D3] 2,000 unit PO DAILY 11/29/17 Cyanocobalamin (Vitamin B-12) [Vitamin B12] 5,000 mcg PO EVERY 3RD DAY 11/29/17 Estrogens,Conj Cream [Premarin 0.625MG/Gm*] 42.5 appl VAG EVERY 3RD DAY 11/29/17 Folic Acid 2 tab PO DAILY 11/29/17 Magnesium Oxide [Magnesium] 500 mg PO DAILY 11/29/17 Renner-3/Dha/Epa/Fish Oil [Fish Oil Renner-3 EC 1,200 mg] 2 each PO BID 11/29/17 Ubidecarenone/Vitamin E Mixed [Zml62-Vvi E 200 mg-20 Unit Sfg] 1 each PO DAILY 11/29/17 Candesartan/Hydrochlorothiazid [Candesartan-Hctz 32-12.5 mg Tb] 1 each PO DAILY 09/24/20 Glimepiride 2 mg PO DAILY 09/24/20 Levothyroxine [Synthroid*] 125 mcg PO [id number] 09/24/20 Biotin 1,000 mcg PO DAILY 03/04/24 Clopidogrel Bisulfate [Plavix] 75 mg PO [id number] 03/04/24 Gabapentin 200 mg PO DAILY 03/04/24 Hydralazine [Apresoline] 50 mg PO BID 03/04/24 Om3/Dha/Epa/Fish/D3/Lutein/Eliane [Numaqula Renner-3 Softgel] 3 cap PO DAILY 03/04/24 Rosuvastatin Calcium 20 mg PO DAILY 03/04/24 Selenium 200 mcg PO EVERY 7TH DAY 03/04/24 Zinc Gluconate [Zinc] 50 mg PO MO,FR 03/04/24 bisoproloL fumarate [Bisoprolol Fumarate] 5 mg PO DAILY 03/04/24 - Past Medical/Surgical History Diabetic: Yes -: osteoarthritis -: hypertension -: diabetes -: glaucoma -: 2008 left total knee -: 2009 stent in right carotid -: 2012 left hand -: 2014 solesta treatment for bowel -: 2014 right foot bunionectomy -: 2019 Left carotid endarterectomy - Family History Father -: Hypertension, Stroke Notes: mother htn, sister kidney disease with dialysis, brother of lung cancer - Social History Smoking Status: Never smoker Alcohol use: No CD- Drugs: No Caffeine use: Yes Review of Systems Respiratory: Shortness of Breath Cardiovascular: Chest Pain (tightness) Neurological: Other (dizziness) Physical Examination - Physical Exam General: Alert, In no apparent distress, Oriented x3 HEENT: Atraumatic, Normocephalic, PERRLA Neck: Supple, 2+ carotid pulse no bruit Respiratory: Clear to auscultation bilaterally, Normal air movement Cardiovascular: Normal pulses, Regular rate/rhythm, Normal S1 S2 Gastrointestinal: Normal bowel sounds, Soft and benign Musculoskeletal: No clubbing Integumentary: No rashes Neurological: Normal speech, Normal tone - Studies Laboratory Data (last 24 hrs) 03/04/24 03/04/24 09:37 09:37 WBC 5.20 Hgb 11.5 L Hct 32.7 L Plt Count 174 Sodium 141 Potassium 3.8 BUN 23 H Creatinine 0.79 Glucose 152 H Total Bilirubin 0.5 AST 17 ALT 24 Alkaline Phosphatase 68 Assessment and Plan - Plan Assessment and plan Chest pain rule out History of left carotid endarterectomy 2019 History of right carotid stent 2009 - EKG: No obvious ST segment changes, 1st degree heart block - troponin 5.4/5.1, Serial pending - Ordered transthoracic echocardiogram - chest x-ray - Consult Cardiology -heart cath in the a.m. - S/P aspirin 324 mg PO x 1 in ED - Start daily baby aspirin and statin - Symptom control with PRN acetaminophen, nitroglycerin -continuous telemetry -TSH/FreeT4, A1C, lipid panel pending -N.p.o. in the morning -Hold plavix til after the heart cath History of diabetes mellitus -Accu-Chek with sliding scale insulin -Serum glucose 152 -A1c pending History hypertension/HLD History of hypothyroidism History of obstructive sleep apnea History of glaucoma History of osteoarthritis -Continue home medications when available DVT PPx SCDs Full code LOS 24 hours Discharge Plan: Home Plan to discharge in: 24 Hours - Advance Directives Does patient have a Living Will: No Does patient have a Durable POA for Healthcare: No
[2024-03-04] MEDS ORDERED: NITROGLYCERIN 0.4 MG/TAB SL PRN (12:00)
[2024-03-04 12:53] LABS: Thyroid Stimulating Hormone 0.162 uIU/mL (0.358-3.740)
--- NOTE | 2024-03-04 13:02 | EKG ---
Test Date: 2024-03-04 Test Time: 09:50:22 [employer]: [employer] MEASUREMENT RESULTS: Intervals: Rate: 70 MD: 224 QRSD: 84 QT: 400 QTc: 432 [place]: P: 77 MD: 224 QRS: 4 T: 55 INTERPRETIVE STATEMENTS: Sinus rhythm with 1st degree AV block Otherwise normal ECG Compared to ECG 06/15/2020 12:12:10 First degree AV block now present Electronically Signed On 03-04-24 13:01:25 CDT by Nico Lomeli
[2024-03-04 14:06] LABS: PT Prothrombin Time 11.8 SECONDS (9.4-12.5); Protime INR 1.07
[2024-03-04 14:48] VITALS: BMI 31.1
[2024-03-04] MEDS: NA CHLORIDE 0.9% 500 ML IV SCH (15:14)
[2024-03-04] MEDS: INSULIN REGULAR (HUMAN) 100 UNIT/ML SQ SCH (16:03)
[2024-03-04] MEDS: HYDRALAZINE HCL 25 MG TABLET PO SCH (21:04)
[2024-03-04] MEDS: ATORVASTATIN 40 MG TAB PO SCH (21:05)
--- NOTE | 2024-03-04 21:16 | CON ---
Date of Consultation: 03/04/2024 Reason For Consultation: Chest pain. History Of Present Illness: 83-year-old female, history of hypertension, diabetes, dyslipidemia, car otid stenosis, status post endarterectomy and stent placement, presented with chest pain, pressure-li ke, feels heaviness in the upper chest, radiates to the neck and to the jaw and she does have also sh ortness of breath with minimal activity and minimal lower extremity edema bilaterally. No nausea, vo miting, diarrhea, or diaphoresis. Past Medical History: As outlined above in the HPI. Medication: Refer to reconciliation sheet for detailed list. Allergies: HYDROCODONE. Past Surgical History: Total left knee replacement. Right carotid stent placement. Family History: No premature coronary artery disease or cancer. Social History: She does not smoke or drink. Does not use any drugs. Review of Systems: All systems were reviewed and they were negative except as mentioned in the HPI. Physical Examination: Vital Signs: Reviewed. Head and Neck: Pupils are equal, reactive to light. Intact eye movements. No JVD. No cervical lym phadenopathy. Neck is supple. Thyroid is not enlarged. Lungs: Clear to auscultation bilaterally. No rhonchi, wheezing, or crackles. No accessory muscle u se. Heart: Regular rate and rhythm. No extra sounds. Abdomen: Soft, nontender. Bowel sounds positive. No organomegaly. No masses or hernia. No rigidi ty or rebound. Extremities: No edema, clubbing, or cyanosis. Intact pulses. Skin: No rash. No nodule. Neurologic: Alert, awake, oriented x3. No acute focal deficits appreciated. Investigations: BUN 23, creatinine 0.79. Troponin 5.4, and NT-proBNP is 507, hemoglobin 11.5. Assessment And Recommendations: 1.Unstable angina, typical symptoms, chest pressure, radiates to the neck and the jaw. First set of cardiac enzymes are negative. She is pain-free now. Continue aspirin and statin and nitroglycerin p.r.n. Keep NPO past midnight for coronary angiogram tomorrow. 2.Hypertension. Her blood pressure is well controlled. Continue home medications. 3.Dyslipidemia. Continue Lipitor 40 mg q.h.s. 4.Diabetes. Sugars are acceptable. Continue to monitor. 5.Elevated NT-proBNP. We will obtain LVEDP tomorrow and LV gram to further evaluate. SR/MODL Voice ID: [id number] Report ID: [id number]
[2024-03-05 02:52] LABS: Absolute Eosinophils 0.2 K/uL (0-0.5); Absolute Lymphocytes (CBC) 2.3 K/uL (0.7-4.9); Absolute Monocytes 0.4 K/uL (0.1-1.3); Absolute Neutrophil 3.3 K/uL (1.8-8.0); Basophils % 0.7 % (0-1.3); Eosinophils % 3.9 % (0-4.4); Hematocrit 32.3 % (36.0-45.0); Hemoglobin 11.3 g/dL (12.0-15.0); Lymphocytes % 36.4 % (15.3-44.8); MCH 30.5 pg (27.0-35.0); MCHC 34.9 g/dL (32.0-36.0); MCV 87.4 fL (80-100); MPV 6.4 fL (7.6-11.3); Monocytes % 6.5 % (3.3-12.3); Neutrophils % 52.5 % (41.7-73.7); Nucleated Red Blood Cells % 0.2 % (0-0); Platelets 180 thou/uL (152-406); RBC Red Blood Cell Count 3.69 M/uL (3.86-4.86); Red Cell Distribution Width 13.9 % (12.1-15.2)
[2024-03-05 03:09] LABS: Anion Gap 6.6 mEq/L (5.0-15.0); Magnesium 2.3 mg/dL (1.6-2.4); Phosphorus 3.1 mg/dL (2.5-4.9); Potassium 3.6 mEq/L (3.5-5.1)
[2024-03-05] MEDS: LEVOTHYROXINE SOD 0.125 MG TAB PO SCH (06:00)
[2024-03-05] MEDS ORDERED: HYDRALAZINE HCL 25 MG TABLET PO SCH (06:30)
[2024-03-05] MEDS: ASPIRIN EC 81 MG TAB PO SCH (07:32)
[2024-03-05] MEDS ORDERED: HEPA 1000U/500MLS 2,000 UNIT/1,000 ML BAG IV ONE (09:12)
[2024-03-05] MEDS ORDERED: MIDAZOLAM HCL 2 MG/2 ML INJ ONE (09:12)
[2024-03-05] MEDS ORDERED: LIDOCAINE 1% 20 ML MDV ONE (09:12)
[2024-03-05] MEDS ORDERED: FENTANYL CITR 100 MCG/2 ML ONE (09:12)
[2024-03-05] MEDS ORDERED: ATROPINE SULF 1 MG/10 ML SYR IV ONE (09:12)
[2024-03-05] MEDS ORDERED: HEPARIN 5000 UNIT/ML 1 ML VIAL ONE (09:13)
[2024-03-05] MEDS ORDERED: ASPIRIN 325 MG TAB ONE (09:13)
[2024-03-05] MEDS ORDERED: HEPARIN 10,000 UNIT/10 ML VIAL IV ONE (09:13)
[2024-03-05] MEDS ORDERED: TICAGRELOR 90 MG TABLET PO ONE (09:13)
[2024-03-05] MEDS ORDERED: CLOPIDOGREL 75 MG TABLET ONE (09:13)
[2024-03-05] MEDS ORDERED: REGADENOSON 0.4 MG/5 ML SYR IV ONE (09:48)
--- NOTE | 2024-03-05 11:18 | P.PN ---
Subjective Date of Service: 03/05/24 Chief Complaint: Chest pain r/o Subjective: No new changes, No C/O voiced, Tolerating diet, Ambulating, Improving Review of Systems 10-point ROS is otherwise unremarkable Physical Examination - Vital Signs Temperature: 97 F Blood Pressure: 148/62 Pulse: 76 Respirations: 18 Pulse Ox (%): 98 - Physical Exam General: Alert, In no apparent distress HEENT: Atraumatic, PERRLA, EOMI Neck: Supple, JVD not distended Respiratory: Clear to auscultation bilaterally, Normal air movement Cardiovascular: Regular rate/rhythm, Normal S1 S2 Gastrointestinal: Normal bowel sounds, No tenderness Musculoskeletal: No tenderness Integumentary: No rashes Neurological: Normal speech, Normal tone, Normal affect Lymphatics: No axilla or inguinal lymphadenopathy - Studies Medications List Reviewed: Yes Assessment And Plan - Current Problems (Diagnosis) (1) Unstable angina Current Visit: Yes Status: Acute Plan: Patient had a coronary angiogram today that shows 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 Continue ASA 81 mg daily Continue Lipitor 40 mg daily (2) HTN (hypertension) Current Visit: Yes Status: Acute Plan: Continue home medications. (3) HLD (hyperlipidemia) Current Visit: Yes Status: Acute Plan: Continue Lipitor 40 mg daily
--- NOTE | 2024-03-05 12:33 | OP ---
Date of Procedure: 03/05/2024 Surgeon: Lane Manuel Procedures Performed: 1.Left heart catheterization. 2.Coronary angiogram. 3.FFR of the LAD. Indication For Procedure: Unstable angina. Complications: None. Estimated Blood Loss: Less than 50 cc. Sedation: Sedation time is 30 minutes with 1 of Versed and 25 of fentanyl. Access: Right radial, closed by TR band. Description Of Procedure: After risks, benefits, and alternatives were explained to the patient, the patient agreed to proceed with the procedure and signed informed consent. The patient was brought [facility] to the laborer car barn, prepped and draped in sterile fashion. Access was obtained using an ultrasound- guided micropuncture technique. Next, [place] 4 catheter was advanced over a J-wire to the LV cavity. LVEDP was obtained. Pullback did not show any gradient. Same catheter was used for selective angio gram of the left and right coronary systems. The catheter was exchanged for an EBU 3.0 guide. Hepar in was administered. ACT was therapeutic. [place] FFR wire was introduced into the LAD. Baseline FFR was 0.96, peak was 0.86. With stress, pullback did not show any drift. Final angiogram shows FIOR- 3 flow, so the catheter was removed over a J-wire and sheath was removed. TR band was applied. Findings: 1.Left main, normal. 2.LAD, mid 50% disease, FFR negative. Distal, tortuous, mild LI. 3.Diagonal 1, proximal 50% disease, then mild LI. 4.Left circ, mild LI. 5.RCA, large, dominant, mild LI. 6.LVEDP 7 mmHg. Assessment And Plan: 1.Mild to moderate mid LAD disease that is FFR negative. 2.Mild diagonal 1 disease small artery. 3.Normal filling pressure. 4.Continue medical management for CAD. LATHAM/MODL Voice ID: [id number] Report ID: [id number]
--- NOTE | 2024-03-05 13:49 | ECHO ---
HEIGHT: 5 ft 3 in WEIGHT: 176 lb 0 oz DATE OF STUDY: 03/05/[address]: Bella Angeles NP 2-DIMENSIONAL: YES M.MODE: YES DOPPLER: YES COLOR FLOW: YES TDS: PORTABLE: YES DEFINITY: BUBBLE STUDY: DIAGNOSIS: CHEST PAIN RULE OUT CARDIAC HISTORY: CATHERIZATION: YES SURGERY: NO PROSTHETIC VALVE: NO PACEMAKER: NO MEASUREMENTS (cm) DIASTOLIC (NORMALS) SYSTOLIC (NORMALS) IVSd 1.0 (0.6-1.2) LA Diam 2.6 (1.9-4.0) LVEF 60% LVIDd 4.2 (3.5-5.7) LVIDs 3.1 (2.0-3.5) %FS 27% LVPWd 1.1 (0.6-1.2) Ao Diam 3.2 (2.0-3.7) 2 DIMENSIONAL ASSESSMENT: RIGHT ATRIUM: NORMAL LEFT ATRIUM: NORMAL RIGHT VENTRICLE: NORMAL LEFT VENTRICLE: NORMAL TRICUSPID VALVE: MILD TRICUSPID REGURGITATION MITRAL VALVE: NORMAL PULMONIC VALVE: NORMAL AORTIC VALVE: NORMAL PERICARDIAL EFFUSION: NONE AORTIC ROOT: NORMAL LEFT VENTRICULAR WALL MOTION: NORMAL DOPPLER/COLOR FLOW: GRADE I DIASTOLIC DYSFUNCTION COMMENTS: 1. NORMAL LEFT VENTRICULAR SYSTOLIC FUNCTION, EJECTION FRACTION 60%, NORMAL WALL MOTION 2. GRADE I DIASTOLIC DYSFUCNTION 3. MILD TRICUSPID REGURGITATION TECHNOLOGIST: GREGG OVIEDO
--- NOTE | 2024-03-05 14:03 | P.DS ---
Admission Date: 03/04/24 Discharge Date: 03/05/24 Disposition: ROUTINE DISCHARGE Discharge Condition: GOOD Reason for Admission: Chest pain r/o Brief History of Present Illness: Diagnosis Chest pain rule out History of left carotid endarterectomy 2019 History of right carotid stent 2009 History of diabetes mellitus History hypertension/HLD History of hypothyroidism History of obstructive sleep apnea History of glaucoma History of osteoarthritis HPI 03/04/24 Remedios Rothman is an 83 year old female with Pmhx Osteoarthritis, hypertension, diabetes, glaucoma, hypercholesterolemia, right carotid stent (2009), and left carotid endarterectomy (2019) who presents to the ED with chief complaint of chest pain, dyspnea on exertion, and dizziness for 1 month. She reports not feeling dizzy while she is in a supine position. She has no family history of heart disease. On examination she is in no acute distress, not short of breath, lung sounds clear, and hemodynamically stable. Laboratory evaluation troponin 5.4, BNP 507, serum glucose 152 Initial vital BP 184 / 83; Pulse 77; Resp 17; Temp 97.8(O); Pulse Ox 99% on R/A; Chest x-ray reports " No acute cardiopulmonary process." Remedios will be admitted to hospitalist service for further evaluation and treatment, cardiology has been consulted. Hospital Course: Remedios Rothman is a pleasant 83 year old female with a past medical history significant for Osteoarthritis, hypertension, diabetes, glaucoma, hypercholesterolemia, right carotid stent (2009), and left carotid endarterectomy (2019) who was admitted to the [facility] on 03/04/24 for chest pain, dysnea on exertion, and dizziness for one month. Remedios Rothman presented to the ED with chest pain and had a heart catheterization (03/05) resulting with 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 She tolerated the procedure well. Chest pain has imporoved, troponins remained negative, She is ambulating independently, tolerating PO diet, hemodynacimally stable for discharge. Follow up with Dr. Manuel in one week. On 03/05/24, Remedios was seen on morning rounds and deemed medically stable for discharge. Remedios was discharged with instructions to schedule follow-up appointments with Dr. Manuel and PCP. Remedios was provided prescriptions for lipitor and aspirin. The patient and family members were given the opportunity to ask questions and reported no further questions. Furthermore, all questions were answered to the best of my ability. A copy of this discharge summary will be sent to the above providers to faci litate continuity of care. Physical Exam General: AAOx3, NAD HEENT: Atraumatic, Normocephalic, PERRLA Neck: Supple, 2+ carotid pulse no bruit Respiratory: Clear to auscultation bilaterally, Normal air movement, on RA Cardiovascular: Normal pulses, NSR, Normal S1 S2 present Gastrointestinal: Normal bowel sounds, Soft and benign on palpation Musculoskeletal: No clubbing Integumentary: No rashes Neurological: Normal speech, Normal tone Vital Signs/Physical Exam: Temp Pulse Resp BP Pulse Ox 97.3 F 74 18 148/74 H 98 03/05/24 12:59 03/05/24 13:47 03/05/24 12:59 03/05/24 13:47 03/05/24 12:59 Laboratory Data at Discharge: WBC 6.30 thou/uL (4.3-10.9) 03/05/24 02:26 Hgb 11.3 g/dL (12.0-15.0) L 03/05/24 02:26 Hct 32.3 % (36.0-45.0) L 03/05/24 02:26 Plt Count 180 thou/uL (152-406) 03/05/24 02:26 PT 11.8 SECONDS (9.4-12.5) 03/04/24 13:52 INR 1.07 03/04/24 13:52 Sodium 140 mEq/L (136-145) 03/05/24 02:26 Potassium 3.6 mEq/L (3.5-5.1) 03/05/24 02:26 BUN 20 mg/dL (7-18) H 03/05/24 02:26 Creatinine 0.73 mg/dL (0.55-1.02) 03/05/24 02:26 Glucose 119 mg/dL (74-106) H 03/05/24 02:26 Phosphorus 3.1 mg/dL (2.5-4.9) 03/05/24 02:26 Magnesium 2.3 mg/dL (1.6-2.4) 03/05/24 02:26 Total Bilirubin 0.5 mg/dL (0.2-1.0) 03/04/24 09:37 AST 17 U/L (15-37) 03/04/24 09:37 ALT 24 U/L (13-56) 03/04/24 09:37 Alkaline Phosphatase 68 U/L (45-117) 03/04/24 09:37 Triglycerides 140 mg/dL (<150) 03/05/24 02:26 Cholesterol 98 mg/dL (<200) 03/05/24 02:26 HDL Cholesterol 39 mg/dL (40-60) L 03/05/24 02:26 Cholesterol/HDL Ratio 2.51 03/05/24 02:26 Home Medications: Ascorbic Acid [Vitamin C*] 1,000 mg PO DAILY 11/29/17 Aspirin [Aspirin EC 81 MG] 81 mg PO DAILY 11/29/17 Cholecalciferol (Vitamin D3) [Vitamin D3] 2,000 unit PO DAILY 11/29/17 Cyanocobalamin (Vitamin B-12) [Vitamin B12] 5,000 mcg PO EVERY 3RD DAY 11/29/17 Estrogens,Conj Cream [Premarin 0.625MG/Gm*] 42.5 appl VAG EVERY 3RD DAY 11/29/17 Folic Acid 2 tab PO DAILY 11/29/17 Magnesium Oxide [Magnesium] 500 mg PO DAILY 11/29/17 [place]-3/Dha/Epa/Fish Oil [Fish Oil [place]-3 EC 1,200 mg] 2 each PO BID 11/29/17 Ubidecarenone/Vitamin E Mixed [Myn53-Awq E 200 mg-20 Unit Sfg] 1 each PO DAILY 11/29/17 Candesartan/Hydrochlorothiazid [Candesartan-Hctz 32-12.5 mg Tb] 1 each PO DAILY 09/24/20 Glimepiride 2 mg PO DAILY 09/24/20 Levothyroxine [Synthroid*] 125 mcg PO [id number] 09/24/20 Biotin 1,000 mcg PO DAILY 03/04/24 Clopidogrel Bisulfate [Plavix*] 75 mg PO [id number] 03/04/24 Gabapentin 200 mg PO DAILY 03/04/24 Hydralazine [Apresoline*] 25 mg PO BID 03/04/24 Om3/Dha/Epa/Fish/D3/Lutein/Eliane [[place]uma[place]ula [place]-3 Softgel] 3 cap PO DAILY 03/04/24 Selenium 200 mcg PO EVERY 7TH DAY 03/04/24 Zinc Gluconate [Zinc] 50 mg PO MO,FR 03/04/24 bisoproloL fumarate [Bisoprolol Fumarate] 5 mg PO DAILY 03/04/24 Atorvastatin Calcium [Lipitor] 40 mg PO BEDTIME 30 Days #30 tab 03/05/24 New Medications: Atorvastatin Calcium [Lipitor] 40 mg PO BEDTIME 30 Days #30 tab Physician Discharge Instructions: Remedios Rothman presented to the ED with chest pain and had a heart catheterization today (03/05). Please follow up with Dr. Manuel in one week. 1. Please call and schedule a follow-up appointment with your PCP in 3-5 days - Please follow-up with your PCP for medication refills/adjustments 2. Please call and schedule a follow-up appointment with Dr Manuel in one week 3. Continue diabetic diet 4. activity restrictions , do not lift greater than 8 pounds for two days 5. Return to the ED if symptoms worsen New medications Lipitor 40 mg at bedtime- increased dose aspirin 81 mg daily Diet: ADA Activity: Fall precautions Followup: Elio Whitaker MD [Primary Care Provider] -
[2024-03-05 16:27] VITALS: BP 142/71; TEMP 97.2; O2SAT 100
== END 2024-03-05 16:29 | disposition home or self-care (01) ==
LOC: ER 08:59 → ERHOLD 12:00 → 2ND 13:10
PROVIDERS: ADMIT Hospitalist; ATTEND Internal Medicine
PROC: 4A023N7 Measurement of Cardiac Sampling and Pressure, Left Heart, Percutaneous Approach (ICD-10-PCS; principal; 2024-03-05)
PROC: B2111ZZ Fluoroscopy of Multiple Coronary Arteries using Low Osmolar Contrast (ICD-10-PCS; 2024-03-05)
PROC: B245YZZ Ultrasonography of Left Heart using Other Contrast (ICD-10-PCS; 2024-03-05)
DX: I25.110 Atherosclerotic heart disease of native coronary artery with unstable angina pectoris (principal); I77.1 Stricture of artery; I10 Essential (primary) hypertension; E11.9 Type 2 diabetes mellitus without complications; E78.5 Hyperlipidemia, unspecified; I44.0 Atrioventricular block, first degree; R42 Dizziness and giddiness; E78.00 Pure hypercholesterolemia, unspecified; I65.23 Occlusion and stenosis of bilateral carotid arteries; G47.33 Obstructive sleep apnea (adult) (pediatric); E03.9 Hypothyroidism, unspecified; M19.90 Unspecified osteoarthritis, unspecified site; H40.9 Unspecified glaucoma; Z95.820 Peripheral vascular angioplasty status with implants and grafts; Z79.82 Long term (current) use of aspirin; Z79.84 Long term (current) use of oral hypoglycemic drugs; Z79.899 Other long term (current) drug therapy; Z88.5 Allergy status to narcotic agent; Z82.49 Family history of ischemic heart disease and other diseases of the circulatory system; Z82.3 Family history of stroke; Z80.1 Family history of malignant neoplasm of trachea, bronchus and lung
CPT/HCPCS: 36415; 71045; 76937; 80048; 80061; 80076; 82947; 83036; 83735; 83880; 84100; 84439; 84443; 84484; 85025; 85347; 85610; 93005; 93306; 93458; 93571; 99152; 99153; 99285; C1769; C1893; G0378; J0461; J1644; J2001; J2250; J2785; J3010; J7030; Q9966

== ENCOUNTER 2024-04-11 07:00 | Day surgery (SDC) | payer OTHER ==
[2024-04-08 16:23] LABS: Absolute Eosinophils 0.2 K/uL (0-0.5); Absolute Lymphocytes (CBC) 1.9 K/uL (0.7-4.9); Absolute Monocytes 0.4 K/uL (0.1-1.3); Absolute Neutrophil 2.7 K/uL (1.8-8.0); Basophils % 0.7 % (0-1.3); Eosinophils % 4.6 % (0-4.4); Hematocrit 35.2 % (36.0-45.0); Lymphocytes % 35.4 % (15.3-44.8); MCH 29.7 pg (27.0-35.0); MCV 87.5 fL (80-100); MPV 6.5 fL (7.6-11.3); Neutrophils % 51.3 % (41.7-73.7); Nucleated Red Blood Cells % 0.1 % (0-0); Platelets 221 thou/uL (152-406); RBC Red Blood Cell Count 4.03 M/uL (3.86-4.86); Red Cell Distribution Width 14.2 % (12.1-15.2)
[2024-04-08 16:30] LABS: PT Prothrombin Time 11.3 SECONDS (9.4-12.5); PTT, Activated Partial Thromb 28.3 SECONDS (24.3-36.9); Protime INR 1.01
--- NOTE | 2024-04-10 11:48 | EKG ---
Test Date: 2024-04-08 Test Time: 15:56:11 Junior Automation Engineer: DONNA MEASUREMENT RESULTS: Intervals: Rate: 71 OK: 214 QRSD: 78 QT: 394 QTc: 428 [place]: P: 63 OK: 214 QRS: -13 T: 61 INTERPRETIVE STATEMENTS: Sinus rhythm with 1st degree AV block Otherwise normal ECG Compared to ECG 03/04/2024 09:50:22 No significant changes Electronically Signed On 04-10-24 11:44:[address] Manuel
[2024-04-11] MEDS ORDERED: NA CHLORIDE 0.9% 500 ML ONE (07:16)
[2024-04-11] MEDS ORDERED: LIDOCAINE 1% 20 ML MDV ONE (07:56)
[2024-04-11] MEDS ORDERED: MIDAZOLAM HCL 2 MG/2 ML INJ ONE (07:57)
[2024-04-11] MEDS ORDERED: FENTANYL CITR 100 MCG/2 ML ONE (07:57)
[2024-04-11] MEDS ORDERED: HEPA 1000U/500MLS 2,000 UNIT/1,000 ML BAG IV ONE (07:57)
--- NOTE | 2024-04-11 09:40 | OP ---
Date of Procedure: 04/11/2024 Surgeon: Lane Manuel Procedure Performed: Carotid angiogram bilaterally. Indications For Procedure: Dizziness and abnormal carotid duplex. Complications: None. Estimated Blood Loss: Less than 50 cc. Sedation Time: 20 minutes with 1 of Versed and 50 of fentanyl. Access: Right common femoral artery, closed by manual compression. Description Of Procedure: After risks, benefits, and alternatives were explained to the patient, the patient agreed to proceed with procedure and signed informed consent. The patient was brought back to the concrete plant laborer, prepped and draped in sterile fashion. Time-out was performed. Sedation was admini stered. Next, an ultrasound-guided right common femoral artery access was obtained. A 4-English joseph th was introduced without any difficulty. Next, a [place] 1 catheter was advanced to the right carotid artery and the left internal carotid artery for selective angiogram. At the end of procedure, cathet er was removed over a J-wire. Sheath was removed. Manual compression was applied and hemostasis was achieved. The patient was moved back to recovery in stable condition. Findings: 1.Right common carotid artery/internal carotid artery stent is patent with distal edge mild 40% to 5 0% ISR. There is a 90-degree angle at the edge of the stents, was most likely contributing to that. 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 3.Left common carotid artery/internal carotid artery is patent, ectatic. 4.Left external carotid artery is patent. Assessment And Plan: 1.Mild to moderate distal right common carotid artery, internal carotid artery stent ISR. 2.Patent left internal carotid artery. Plan will be to continue medical management. YEISON/RADHA Voice ID: [id number] Report ID: [id number]
[2024-04-11 13:00] VITALS: BP 129/55; O2SAT 100
== END 2024-04-11 12:49 | disposition home or self-care (01) ==
LOC: CCL 07:00
PROVIDERS: ATTEND Internal Medicine Interventional Cardiology
DX: I65.21 Occlusion and stenosis of right carotid artery (principal); T82.856A Stenosis of peripheral vascular stent, initial encounter; I70.203 Unspecified atherosclerosis of native arteries of extremities, bilateral legs; R42 Dizziness and giddiness; I10 Essential (primary) hypertension; E78.5 Hyperlipidemia, unspecified; E11.9 Type 2 diabetes mellitus without complications; Z79.02 Long term (current) use of antithrombotics/antiplatelets; Z79.82 Long term (current) use of aspirin; Z79.899 Other long term (current) drug therapy; Z88.5 Allergy status to narcotic agent; Z82.49 Family history of ischemic heart disease and other diseases of the circulatory system
CPT/HCPCS: 93005; 85025; 80048; 36415; 85610; 82947; 85730; 36222; 76937; C1893; J2001; J2250; J3010; J7040; 99152; 99153